=== PATIENT | male | born 1950 | race Caucasian/White ===

== ENCOUNTER 2019-03-06 13:51 | Emergency (ER) | payer BC, OTHER ==
--- NOTE | 2019-03-06 14:23 | EDPHYS ---
Physician Documentation [facility] Name: Thomas Villanueva Age: 68 yrs Sex: Male : 1950 Arrival Date: 03/06/2019 Time: 13:54 Bed 23 Private MD: ED Physician Josesito Peterson HPI: 03/06 14:17 This 68 yrs old Male presents to ER via Ambulatory with complaints of Low la1 Back Pain. 14:17 The patient presents with pain that is acute, with no known mechanism of injury. The la1 symptoms are located in the right low back. The pain does not radiate. The problem was sustained when bending over. Onset: The symptoms/episode began/occurred this morning. Modifying factors: The patient symptoms are alleviated by OTC meds, the patient symptoms are aggravated by any movement, bending, lifting. Associated signs and symptoms: Pertinent negatives: hematuria, incontinence, nausea, numbness, tingling, urinary retention, vomiting, weakness. Severity of symptoms: At their worst the symptoms were moderate, in the emergency department the symptoms are unchanged. The patient has not experienced similar symptoms in the past. Pt reports when he was getting up off the toilet he felt something in his right back area and since then has had stiffness and pain. . Historical: - Allergies: 14:05 No Known Allergies; hb - Home Meds: 14:05 clopidogrel 75 mg oral tab 1 tab once daily [Active]; finasteride 1 mg oral tab 1 tab hb once daily [Active]; Metformin Oral [Active]; levothyroxine oral [Active]; - PMHx: 14:05 Hypertension; Hypothyroidism; hb - PSHx: 14:05 None; hb - Immunization history:: Adult Immunizations up to date. - Social history:: Smoking status: Patient uses tobacco products, smokes one-half pack cigarettes per day. - Ebola Screening: : No symptoms or risks identified at this time. ROS: 14:18 Constitutional: Negative for fever, chills, and weight loss, Eyes: Negative for injury, la1 pain, redness, and discharge, ENT: Negative for injury, pain, and discharge, Neck: Negative for injury, pain, and swelling, Cardiovascular: Negative for chest pain, palpitations, and edema, Respiratory: Negative for shortness of breath, cough, wheezing, and pleuritic chest pain, Abdomen/GI: Negative for abdominal pain, nausea, vomiting, diarrhea, and constipation, : Negative for injury, bleeding, discharge, and swelling, MS/Extremity: Negative for injury and deformity, Neuro: Negative for headache, weakness, numbness, tingling, and seizure. 14:18 Back: Positive for decreased range of motion, pain at rest, pain with movement. Exam: 14:19 Constitutional: This is a well developed, well nourished patient who is awake, alert, la1 and in no acute distress. Head/Face: Normocephalic, atraumatic. Eyes: Pupils equal round and reactive to light, extra-ocular motions intact. Periorbital areas with no swelling, redness, or edema. Chest/axilla: Normal chest wall appearance and motion. Nontender with no deformity. No lesions are appreciated. Cardiovascular: Regular rate and rhythm with a normal S1 and S2. No gallops, murmurs, or rubs. Normal PMI, no JVD. No pulse deficits. 14:19 Back: pain, that is moderate, of the right low back, ROM is painful, with all movement, CVA tenderness, is absent, vertebral tenderness, is not appreciated, muscle spasm, is appreciated in the right low back, Straight leg raises: left lower extremity does not illicit pain, right lower extremity illicits pain, at 30 degrees. 14:19 Musculoskeletal/extremity: Circulation is intact in all extremities. Sensation intact. Vital Signs: 14:05 BP 140 / 62; Pulse 104; Resp 16; Temp 97.8; Pulse Ox 100% ; Weight 71.67 kg; Height 5 hb ft. 6 in. (167.64 cm); Pain 8/10; 14:45 BP 135 / 86; Pulse 90; Resp 17; Temp 98; Pulse Ox 100% on R/A; mg2 14:05 Body Mass Index 25.50 (71.67 kg, 167.64 cm) hb MDM: 14:08 Patient medically screened. la1 14:20 Data reviewed: vital signs, nurses notes, and as a result, I will discharge patient. la1 Data interpreted: Pulse oximetry: on room air is 100 %. Interpretation: normal. Counseling: I had a detailed discussion with the patient and/or guardian regarding: the historical points, exam findings, and any diagnostic results supporting the discharge/admit diagnosis, the need for outpatient follow up, a family practitioner, to return to the emergency department if symptoms worsen or persist or if there are any questions or concerns that arise at home. ED course: discussed low likelihood of bony injury without significant mechanism or risk factors, pt denies IV drug use, prolonged steroid use, history of CA, or trauma. Pain is non-radiating, no paresthesias, no saddle anesthesia, no urinary incontinence. . Administered Medications: 14:46 Drug: Robaxin 500 mg Route: PO; mg2 14:46 Follow up: Response: No adverse reaction; Medication administered at discharge. mg2 Disposition: 03/06/19 14:22 Discharged to Home. Impression: Low back pain. - Condition is Stable. - Discharge Instructions: Back Pain, Adult, Back Pain, Adult, [id number]. - Prescriptions for Robaxin 500 mg Oral Tablet - take 2 tablets by ORAL route every 6 hours As needed; 30 tablet. - Medication Reconciliation Form, Thank You Letter, Work release form form. - Follow up: Private Physician; When: 2 - 3 days; Reason: Recheck today's complaints, Re-evaluation by your physician. Follow up: Emergency Department; When: As needed; Reason: Worsening of condition. - Problem is new. - Symptoms are unchanged. Addendum: 03/07/2019 21:11 Co-signature as Attending Physician, Josesito Peterson MD I agree with the assessment and k dr plan of care. Signatures: Josesito Peterson MD MD [facility] Emiliano Houser, [employer] WELTER-C [employer] WELTER-Cla1 Yessi Webb RN RN Shankar Baez RN RN mg2 Corrections: (The following items were deleted from the chart) 03/06 14:22 14:22 03/06/2019 14:22 Discharged to Home. Impression: Low back pain. Condition is la1 Stable. Forms are Medication Reconciliation Form, Thank You Letter, Antibiotic Education, Prescription Opioid Use. Follow up: Private Physician; When: 2 - 3 days; Reason: Recheck today's complaints, Re-evaluation by your physician. Follow up: Emergency Department; When: As needed; Reason: Worsening of condition. la1 14:50 14:22 03/06/2019 14:22 Discharged to Home. Impression: Low back pain. Condition is mg2 Stable. Forms are Medication Reconciliation Form, Thank You Letter, Antibiotic Education, Prescription Opioid Use. Follow up: Private Physician; When: 2 - 3 days; Reason: Recheck today's complaints, Re-evaluation by your physician. Follow up: Emergency Department; When: As needed; Reason: Worsening of condition. Problem is new. Symptoms are unchanged. la1
--- NOTE | 2019-03-06 14:23 | ER ---
Nurse's Notes [facility] Name: Thomas Villanueva Age: 68 yrs Sex: Male : 1950 Arrival Date: 03/06/2019 Time: 13:54 Bed 23 Private MD: Diagnosis: Low back pain Presentation: 03/06 14:03 Presenting complaint: Right sided low back pain x 2 days. Denies fever/injury/urinary hb s/s. Transition of care: patient was not received from another setting of care. Onset of symptoms was March 05, 2019. Risk Assessment: Do you want to hurt yourself or someone else? Patient reports no desire to harm self or others. Initial Sepsis Screen: Does the patient meet any 2 criteria? No. Patient's initial sepsis screen is negative. Does the patient have a suspected source of infection? No. Patient's initial sepsis screen is negative. Care prior to arrival: Medication(s) given: Motrin, at 1200. 14:03 Method Of Arrival: Ambulatory hb 14:03 Acuity: NGOC 4 hb Historical: - Allergies: 14:05 No Known Allergies; hb - Home Meds: 14:05 clopidogrel 75 mg oral tab 1 tab once daily [Active]; finasteride 1 mg oral tab 1 tab hb once daily [Active]; Metformin Oral [Active]; levothyroxine oral [Active]; - PMHx: 14:05 Hypertension; Hypothyroidism; hb - PSHx: 14:05 None; hb - Immunization history:: Adult Immunizations up to date. - Social history:: Smoking status: Patient uses tobacco products, smokes one-half pack cigarettes per day. - Ebola Screening: : No symptoms or risks identified at this time. Screenin:49 Abuse screen: Denies threats or abuse. Denies injuries from another. Nutritional mg2 screening: No deficits noted. Tuberculosis screening: No symptoms or risk factors identified. Fall Risk None identified. Assessment: 14:47 General: Appears in no apparent distress. comfortable, Behavior is calm, cooperative. mg2 Pain: Complains of pain in right low back Pain does not radiate. Pain currently is 4 out of 10 on a pain scale. Quality of pain is described as aching, Pain began gradually, 2-3 days ago. Neuro: Level of Consciousness is awake, alert, obeys commands, Oriented to person, place, time, situation. Cardiovascular: Capillary refill < 3 seconds Patient's skin is warm and dry. Respiratory: Airway is patent Respiratory effort is even, unlabored, Respiratory pattern is regular, symmetrical. GI: No signs and/or symptoms were reported involving the gastrointestinal system. : No signs and/or symptoms were reported regarding the genitourinary system. EENT: No signs and/or symptoms were reported regarding the EENT system. Derm: Skin is intact, is healthy with good turgor, Skin is pink, warm \T\ dry. normal. Musculoskeletal: Circulation, motion, and sensation intact. Capillary refill < 3 seconds, Reports pain in right low back. Vital Signs: 14:05 BP 140 / 62; Pulse 104; Resp 16; Temp 97.8; Pulse Ox 100% ; Weight 71.67 kg; Height 5 hb ft. 6 in. (167.64 cm); Pain 8/10; 14:45 BP 135 / 86; Pulse 90; Resp 17; Temp 98; Pulse Ox 100% on R/A; mg2 14:05 Body Mass Index 25.50 (71.67 kg, 167.64 cm) hb ED Course: 13:54 Patient arrived in ED. as 14:04 Triage completed. hb 14:05 Arm band placed on. hb 14:08 Emiliano Houser FNP-C is [facility]. la1 14:08 Josesito Peterson MD is Attending Physician. la1 14:38 Shankar Baez, GREG is Primary Nurse. mg2 14:49 Patient has correct armband on for positive identification. mg2 14:49 No provider procedures requiring assistance completed. Patient did not have IV access mg2 during this emergency room visit. Administered Medications: 14:46 Drug: Robaxin 500 mg Route: PO; mg2 14:46 Follow up: Response: No adverse reaction; Medication administered at discharge. mg2 Outcome: 14:22 Discharge ordered by . la1 14:49 Discharged to home ambulatory. mg2 14:49 Condition: stable 14:49 Discharge instructions given to patient, Instructed on discharge instructions, follow up and referral plans. medication usage, Demonstrated understanding of instructions, follow-up care, medications, Prescriptions given X 1. 14:50 Patient left the ED. mg2 Signatures: Emily Yoder as Emiliano Houser FNP-C [employer]IST[employer]-Cla1 Yessi Webb RN RN Shankar Baez, GREG RN mg2 Corrections: (The following items were deleted from the chart) 14:50 14:50 BP 135 / 86; Pulse 90bpm; Resp 17bpm; Pulse Ox 100% RA; Temp 98F; mg2 mg2
[2019-03-06] MEDS ORDERED: METHOCARBAMOL 500 MG TAB ONE (14:43)
[2019-03-06] MEDS ORDERED: COLCHICINE 0.6 MG TAB ONE (15:23)
[2019-03-06 19:23] VITALS: O2SAT 100
[2019-03-06 19:25] VITALS: BP 135/86; TEMP 98
== END 2019-03-06 14:50 | disposition home or self-care (01) ==
LOC: ER 13:51
DX: M54.5 Low back pain (principal); I10 Essential (primary) hypertension; E03.9 Hypothyroidism, unspecified; F17.210 Nicotine dependence, cigarettes, uncomplicated
CPT/HCPCS: 99283

== ENCOUNTER 2022-03-07 18:56 | Inpatient (IN) | payer BC ==
--- OUTSIDE RECORDS SUMMARY | 2022-03-07 19:00 | XMS REPORT | Continuity of Care Document ---
:1950 Author Organization [facility] t Address [address] [place] [address] Care Team Providers Name Role Phone [facility] \\\\ [facility] Primary Care Physici an Unavailable Maame Paz APN Attending Clinician MAAME PAZ Attending Clinician Unavailable MAAME PAZ Admitting Clinician Unavailable Payers Payer Name Policy Type Policy Number Effective Date Expiration Date S ource Problems Condition Condition Condition Status Onset Resolution Last Treating Co mments Source Name Details Category Date Date Treatment Clinician Date No known No known Disease Unive rs active active ity of problems problems [facility] Allergies, Adverse Reactions, Alerts Allergy Allergy Status Severity Reaction(s) Onset Inactive Treating Comm ents Source Name Type Date Date Clinician NO KNOWN Drug Active Univers ALLERGIE Class ity of S [facility] Social History Social Habit Start Date Stop Date Quantity Comments Source Sex Assigned At Uni versity of [facility] Smoking Status Start Date Stop Date Source Unknown if ever smoked Universit y [facility] Medications Ordered Filled Start Stop Current Ordering Indication Dosage Frequency Signature Comments Components Source Medication Medication Date Date Medication? Clinician (SIG) Name Name NaCl 0.9% 2020-0 2020- No 500mL at 999 Univ ers (NS) bolus 2-24 02-24 mL/hr, 500 it y of infusion 04:30: 06:30 mL, IV [place] 500 mL 00 :00 Infusion, Medical ONCE, 1 Branch dose, 05/12/19 at 2230, STAT methylpredn 2020-0 2020- No 125mg 125 mg, U nivers isolone sod 2-24 02-24 Slow IV ity of succ 03:15: 02:18 [place], [place] (SOLU-MEDRO 00 :00 ONCE, 1 Medic al L) dose, [place] Branch injection 05/12/19 at 125 mg 2114, STAT ipratropium 2019- No 3mL 3 mL, [facility] ers -albuterol 05-13 Inhalation it y of (DUONEB) 03:15: 02:18 , ONCE [place] 0.5 mg-3 00 :00 NOW, 1 Medical mg(2.5 mg dose, [facility] h base)/3 mL 05/12/19 at nebulizer 2114, solution 3 Routine mL ipratropium 2020- No 3mL 3 mL, [facility] ers -albuterol 05-13 Inhalation it y of (DUONEB) 03:06: 03:07 , ONCE [place] 0.5 mg-3 00 :00 NOW, 1 Medical mg(2.5 mg dose, [place] h base)/3 mL 05/12/19 at nebulizer 2114, solution 3 Routine mL azithromyci Yes [id number] 250mg Take 1 Univers n 250 mg 2-23 tablet by ity of tablet 00:00: mouth [place] 00 daily. Medical Branch predniSONE 2020- No [id number] 40mg Take 2 Univers 20 mg 2-23 -29 tablets by ity of tablet 00:00: 05:59 mouth [place] 00 :00 every Medical morning Branch for 5 days. Vital Signs Vital Name Observation Time Observation Value Comments Source Systolic blood 2019-05-13 03:00:00 130 mm[Hg] [facility] pressure [facility] Diastolic blood 2019-05-13 03:00:00 66 mm[Hg] [facility] Heart rate 2019-05-13 03:00:00 115 /min [facility] Respiratory rate 2019-05-13 03:00:00 19 /min [facility] Oxygen saturation in 2019-05-13 03:00:00 93 /min [facility] Arterial blood by [facility] Pulse oximetry Branch Body temperature 2019-05-13 01:59:00 36.44 Reyna [facility] Body height 2019-05-13 01:59:[address] [facility] Body weight 2019-05-13 01:59:[address] [facility] BMI 2019-05-13 01:59:00 31.28 kg/m2 [facility] Procedures Procedure Date / Time Performing Clinician Source Performed XR CHEST 2 VW 2019-05-13 02:37:[address] [facility] ADC,CLC OR LCC ONLY - 2019-05-13 02:21:00 Maame Paz [facility] INFLUENZA A & B DIRECT Medical [facility] [place] ANTIGEN TROPONIN I 2019-05-13 02:20:[address] [facility] COMP. METABOLIC PANEL 2019-05-13 02:20:00 [facility] ([id number] N-TERMINAL PRO-BNP 2019-05-13 02:20:[address] [facility] CBC WITH DIFFERENTIAL 2019-05-13 02:19:00 [facility] Paz [facility] EKG-12 LEAD 2019-05-13 02:08:[address] [facility] Encounters Start End Encounter Admission Attending Care Care Encounter Source Date/Time Date/Time Type Type Clinicians Facility Department ID 2019-05-12 2019-05-13 [id number] Univers 20:03:05 00:37:00 Maame Schrader [id number] [facility] [id number] [facility] [id number] [facility] 084 Branch 2019-05-12 2019-05-13 Emergency X BRANDI [facility] ERT [id number] Univers 20:03:05 00:37:00 MAAME [facility] Results Test Description Test Time Test Comments Results Result Comments Source ADC,CLC OR LCC ONLY - INFLUENZA A & B DIRECT ANTIGEN 2019-04 03:12:00 Test Item Value Reference Range Interpretation Comme nts Influenza A (test code = 64725-4) Negative Negative Influenza B (test code = 20811-5) Negative Negative Lab Interpretation (test code = 98446-5) Normal [facility] 2 [id number] 03:09:17 No acute cardiopulmonary process. Preliminary Report Dictated by Resident: Bora Elizabeth MD., have reviewed this study and agree with theabove report.PROCEDURE: XR CHEST 2 VW CLINICAL INDICATION: sob, cough, hx of copd COMPARISON: CT chest September 2004 TECHNIQUE: Frontal and lateralviews of the chest were obtained. FINDINGS: No focal consolidation, pleural effusion, or pneumothorax. The cardiac silhouette is normal in size. A vascular stent is noted. No acute osseous abnormality.Bilateral AC joint osteoporosis. [facility], Radiant Results Inft User - 05/12/2019 9:10 PM CSTPROCEDURE: XR CHEST 2 VWCLINICAL INDICATION: sob, cough, hx of copd COMPARISON: CT chest September 2004TECHNIQUE: Frontal and lateral views of the chest were obtained.FINDINGS:No focal consolidation, pleural effusion, or pneumothorax. The cardiac silhouette is normal in size. A vascular stent is noted.No acute osseousabnormality. Bilateral AC joint osteoporosis.IMPRESSIONNo acute cardiopulmonary process.Preliminary Report Dictated by Resident: Bora Aguirre MD., have reviewed this study and agreewith theabove report.[facility] [id number] 03:02:00 Test Item Value Reference Range Interpretation Comments TROPONIN I (test 0.022 ng/mL See_Comment [Automated code = 8988234565) message] The system which generated this result transmitted reference range : <=0.034. The reference range was not used to interpret this result as normal/abnormal . CECILIO (test code = Equal or Less than CECILIO) 0.034 ng/ml---Normal ?Note: Cardiac troponin begins to rise 3-4 hours after the onset of ischemia. Repeat in 4-6 hours if the sample was drawn within 3-4 hours of the onset of the symptom and found normal. Between 0.035 and 0.120 ng/mL--- Borderline. Questionable myocardial injury or necrosis ? ?Note: Serial measurement may be necessary to confirm or exclude the diagnosis of myocardial injury or necrosis; Clinical correlation (symptoms, EKGs, imaging studies, and others) required; Repeat in 4-6 hours if clinically indicated. ? Equal or Higher than 0.121 ng/mL---Abnormal. Myocardial Injury or Necrosis Likely ? Biotin has been reported to cause a negative bias, interpret results relative to patient's use of biotin. ? Lab Interpretation Normal (test code = 86339-9) [facility] PHO-[id number] 02:58:00 Test Item Value Reference Range Interpretation Comments NT-proBNP (test code 241 pg/mL See_Comment H [Autom ated = 5724330739) message] The system which generated this result transmitted reference range : <=125. The reference range was not used to interpret this result as normal/abnormal . CECILIO (test code = CECILIO) Biotin has been reported to cause a negative bias, interpret results relative to patient's use of biotin. Lab Interpretation Abnormal (test code = 90780-9) [facility]OLIC PANEL (21159)2019-05-13 02:50:00 Test Item Value Reference Range Interpretation Comments NA (test code = 141 mmol/L 135-145 6201277186) K (test code = 5.1 mmol/L 3.5-5 H 3881550753) CL (test code = 106 mmol/L 98-108 8041748991) CO2 TOTAL (test code = 25 mmol/L 23-31 0848534883) AGAP (test code = 2-16 1590335769) BUN (test code = 26 mg/dL 7-23 H 9683083565) GLUCOSE (test code = 156 mg/dL 70-110 H 4371831258) CREATININE (test code = 1.77 mg/dL 0.6-1.25 H 1088766060) TOTAL BILI (test code = 0.4 mg/dL 0.1-1.0 8060236214) CALCIUM (test code = 9.9 mg/dL 8.6-10.6 1871688772) T PROTEIN (test code = 8.4 g/dL 6.3-8.2 H 8555292570) ALBUMIN (test code = 4.8 g/dL 3.5-5 6171970575) ALK PHOS (test code = 71 U/L 34-122 8066543378) ALTv (test code = 20 U/L 5-50 1742-6) AST(SGOT) (test code = 38 U/L 13-40 5341185660) eGFR Calculation mL/min/1.73m2 (Non-) (test code = 2719355533) eGFR Calculation mL/min/1.73m2 () (test code = 2479984006) CECILIO (test code = CECILIO) Association of Glomerular Filtration Rate (GFR) and Staging of Kidney Disease* + --+ --+ ------+| GFR (mL/min/1.73 m2) ?| With Kidney Damage ?| ?Without Kidney Damage+ --------+ --------+ +| ?>90 ?| ?Stage one ?| ? Normal ?+ ---+ ---+ -------+| ?60-89 ?| ?Stage two ?| ? Decreased GFR ? + --+ --+ ------+| ?30-59 ?| ?Stage three ?| ? Stage three ? + --+ --+ ------+| ?15-29 ?| ?Stage four ? | ? Stage four ?+ ---+ ---+ -------+| ?<15 (or dialysis) ? ?| ?Stage five ? | ? Stage five ?+ ---+ ---+ -------+ *Each stage assumes the associated GFR level has been in effect for at least three months. ?Stages 1 to 5, with or without kidney disease, indicate chronic kidney disease. Notes: Determination of stages one and two (with eGFR >59mL/min/1.73 m2) requires estimation of kidney damage for at least three months as defined by structural or functional abnormalities of the kidney, manifested by either:Pathological abnormalities or Markers of kidney damage (including abnormalities in the composition of the blood or urine or abnormalities in imaging tests). Lab Interpretation Abnormal (test code = 30824-1) [facility] WITH [id number] 02:34:00 Test Item Value Reference Range Interpretation Comments WBC (test code = See_Comment [Automated 4993-2) message] The sy stem which generated this result transmitted reference range : 4.20 - 10.70 10*3/?L. The reference range was not used to interpret this result as normal/abnormal . RBC (test code = See_Comment L [Automated 589-8) message] The sy stem which generated this result transmitted reference range : 4.26 - 5.52 10*6/?L. The reference range was not used to interpret this result as normal/abnormal . HGB (test code = 12.7 g/dL 12.2-16.4 718-7) HCT (test code = 38.4 % 38.4-49.3 4544-3) MCV (test code = 96.5 fL 81.7-95.6 H 787-2) MCH (test code = 31.9 pg 26.1-32.7 785-6) MCHC (test code = 33.1 g/dL 31.2-35 786-4) RDW-SD (test code = 48.7 fL 38.5-51.6 38035-6) RDW-CV (test code = 13.7 % 12.1-15.4 788-0) PLT (test code = See_Comment [Automated 777-3) message] The sy stem which generated this result transmitted reference range : 150 - 328 10*3/ ?L. The reference r elkin was not used to interpret this result as normal/abnormal . MPV (test code = 9.1 fL 9.8-13 L 71063-3) NRBC/100 WBC (test See_Comment [Automat ed code = 1934519892) message] The system which generated this result transmitted reference range : 0.0 - 10.0 /100 WBCs. The refer ence range was not u sed to interpret th is result as normal/abnormal . NRBC x10^3 (test code <0.01 See_Comment [Auto mated = 0557263543) message] The s ystem which generated this result transmitted reference range : 10*3/?L. The reference range was not used to interpret this result as normal/abnormal . GRAN MAT (NEUT) % 67.8 % (test code = 770-8) IMM GRAN % (test code 0.50 % = 5690291517) LYMPH % (test code = 20.9 % 736-9) MONO % (test code = 8.2 % 5905-5) EOS % (test code = 2.2 % 713-8) BASO % (test code = 0.4 % 706-2) GRAN MAT x10^3(ANC) 6.83 10*3/uL 1.99-6.95 (test code = 2167769158) IMM GRAN x10^3 (test 0.05 10*3/uL 0-0.06 code = 8444573739) LYMPH x10^3 (test code 2.11 10*3/uL 1.09-3.23 = 731-0) MONO x10^3 (test code 0.83 10*3/uL 0.36-1.02 = 742-7) EOS x10^3 (test code = 0.22 10*3/uL 0.06-0.53 711-2) BASO x10^3 (test code 0.04 10*3/uL 0.01-0.09 = 704-7) Lab Interpretation Abnormal (test code = 69456-3) [facility]"
[2022-03-07] MEDS ORDERED: ACETAMINOPHEN 500 MG TAB PO PRN (19:19)
[2022-03-07] MEDS ORDERED: ALBUTEROL 2.5 MG/3 ML NEB SOL NEB PRN (19:19)
[2022-03-07] MEDS ORDERED: ONDANSETRON 4 MG/2 ML VIAL IV PRN (19:19)
--- NOTE | 2022-03-07 19:23 | P.HP ---
Certification for Inpatient Patient admitted to: Inpatient With expected LOS: >2 Midnights Patient will require the following post-hospital care: None Practitioner: I am a practitioner with admitting privileges, knowledge of patient current condition, hospital course, and medical plan of care. Services: Services provided to patient in accordance with Admission requirements found in Title 42 Section 412.3 of the Code of Federal Regulations <Kaleigh Perez - Last Filed: 03/07/22 22:01> Patient History Date of Service: 03/07/22 Reason for admission: CHF Exacerbation History of Present Illness: Patient is a 71-year-old male with past medical history of hypertension, coronary artery disease, type 2 diabetes, COPD, and hypothyroidism who was admitted to the telemetry unit after transfer from [facility]. Patient states that he has noticed his legs have become increasingly swollen over the past couple of weeks. He denies any history of congestive heart failure or daily use of diuretics. Outside facility reports that he had 4+ pitting edema on his lower extremities bilaterally and he was saturating 89% on room air. Despite 40 mg IV Lasix, patient was still borderline hypoxic on room air and short of breath and therefore transferred him to this facility for further management. His labs were significant for potassium of 3.1, creatinine 1.68, BNP 6131, troponin HS 243. Chest x-ray showed "pulmonary vascular congestion and diffuse interstitial prominence. There is moderate infiltrate within the right lower lobe with a small right pleural effusion. The lungs are hyperexpanded. There is a questionable nodule at the left lower lung." During my assessment, patient has no complaints. He denies shortness of breath, is not experiencing any labored breathing, not requiring supplemental O2. 2+ pitting edema is noted to bilateral lower extremities. Will obtain repeat labs, order echocardiogram, and consult cardiology for further management. Home medications list reviewed: Yes - Past Medical/Surgical History Diabetic: Yes -: Type 2 Diabetes, Non-Insulin Dependent -: Congestive Heart Failure -: Hypertension -: Hypothyroidism -: CAD -: COPD -: Cardiac Cath with 2 stents Psychosocial/ Personal History: Patient lives at home. He is retired. - Family History Father -: Diabetes - Social History Smoking Status: Current every day smoker Alcohol use: No CD- Drugs: No Caffeine use: Yes Place of Residence: Home <Ayla Perezia - Last Filed: 03/07/22 22:01> Date of Service: 03/08/22 - Family History Father -: Diabetes Mother -: Diabetes <BarbiKingsley - Last Filed: 03/08/22 15:40> Allergies No Known Drug Allergies Allergy (Verified 03/07/22 20:50) Unknown Review of Systems Respiratory: Shortness of Breath Cardiovascular: Edema <Kaleigh Perez - Last Filed: 03/07/22 22:01> Physical Examination - Vital Signs Temperature: 97.6 F Blood Pressure: 151/100 Pulse: 96 Respirations: 20 Pulse Ox (%): 94 (room air) - Physical Exam General: Alert, In no apparent distress HEENT: Atraumatic, PERRLA, EOMI, Sclerae nonicteric Neck: Supple, Without JVD or thyroid abnormality Respiratory: Clear to auscultation bilaterally, Normal air movement Cardiovascular: Regular rate/rhythm, Normal S1 S2, Edema (2+ pitting edema bilateral lower extremities) Gastrointestinal: Normal bowel sounds, No tenderness Musculoskeletal: No tenderness Integumentary: No rashes Neurological: Normal speech, Normal strength at 5/5 x4 extr, Normal tone, Normal affect <Kaleigh Perez - Last Filed: 03/07/22 22:01> - Studies Laboratory Data (last 24 hrs) 03/08/22 04:50: WBC 9.80, Hgb 13.6, Hct 43.7, Plt Count 183 03/08/22 04:40: Sodium 141, Potassium 3.6, BUN 16, Creatinine 1.30, Glucose 88, Magnesium 1.8, Triglycerides 80, Cholesterol 101, HDL Cholesterol 39 L, Cholesterol/HDL Ratio 2.59 03/07/22 19:51: PT 14.7 H, INR 1.34, APTT 34.8 03/07/22 19:51: Sodium 142, Potassium 3.4 L, BUN 17, Creatinine 1.57 H, Glucose 91, Magnesium 2.0, Total Bilirubin 1.2 H, AST 33, ALT 20, Alkaline Phosphatase 154 H 03/07/22 19:51: WBC 9.50, Hgb 14.0, Hct 45.2, Plt Count 195 <Barbi,Kingsley - Last Filed: 03/08/22 15:40> Assessment and Plan - Problems (Diagnosis) (1) Acute CHF Current Visit: Yes Status: Acute Qualifiers: Heart failure type: unspecified Qualified Code(s): I50.9 - Heart failure, unspecified (2) Hypertension Current Visit: Yes Status: Chronic Qualifiers: Hypertension type: primary hypertension Qualified Code(s): I10 - Essential (primary) hypertension (3) Coronary artery disease Current Visit: Yes Status: Acute Qualifiers: Coronary Disease-Associated Artery/Lesion type: [place] artery [place] vs. transplanted heart: [place] heart Associated angina: without angina Qualified Code(s): I25.10 - Atherosclerotic heart disease of [place] coronary artery with out angina pectoris (4) Type 2 diabetes mellitus Current Visit: Yes Status: Chronic Qualifiers: Diabetes mellitus bed bug exterminator insulin use: without senior living use Diabetes mellitus complication status: without complication Qualified Code(s): E11.9 - Type 2 diabetes mellitus without complications (5) Hypothyroidism Current Visit: Yes Status: Chronic Qualifiers: Hypothyroidism type: unspecified Qualified Code(s): E03.9 - Hypothyroidism, unspecified - Plan Patient is admitted for new onset of CHF/CHF exacerbation. Echocardiogram ordered. Cardiology consulted. Troponin HS from [place] was 243. Likely demand ischemia. Received 325 mg aspirin. Repeat labs pending. Trend serial cardiac enzymes. Received 40 mg IV lasix at [place]. Will continue 40 mg IV BID. Patient states he no longer takes medication for T2D. Glucose monitoring and control with SS. A1c, lipid panel, and TSH ordered. Tobacco cessation advised. Nicoderm patch offered. Monitor and replete electrolytes per protocol. Reconcile and continue home medications. Lovenox for VTE prophylaxis. Full code Discharge Plan: Home Plan to discharge in: 48 Hours - Advance Directives Does patient have a Living Will: No Does patient have a Durable POA for Healthcare: No - Code Status/Comfort Care Code Status Assessed: Yes Code Status: Full Code Physician Review: Patient Assessed, Agree with Above Assessment and Plan Critical Care: No Time Spent Managing Pts Care (In Minutes): 50 <Kaleigh Perez - Last Filed: 03/07/22 22:01> Physician Review: Patient Assessed, Agree with Above Assessment and Plan <Kingsley Landon - Last Filed: 03/08/22 15:40>
[2022-03-07] MEDS ORDERED: D50W 25 GM/50 ML SYRINGE IV PRN (19:24)
[2022-03-07] MEDS ORDERED: GLUCAGON 1 MG/VIAL IM PRN (19:24)
[2022-03-07 20:18] LABS: Hematocrit 45.2 % (39.6-49.0); Lymphocytes % 10.8 % (15.3-44.8); MCV 88.7 fL (80-100); MPV 8.4 fL (7.6-11.3); RBC Red Blood Cell Count 5.09 M/uL (4.33-5.43)
[2022-03-07 20:22] LABS: Protime INR 1.34
[2022-03-07 20:44] LABS: Albumin 2.5 g/dL (3.4-5.0); Bilirubin Total 1.2 mg/dL (0.2-1.0); Potassium 3.4 mmol/L (3.5-5.1); Protein, Total 6.8 g/dL (6.4-8.2)
[2022-03-07] MEDS ORDERED: POTASSIUM CL SA 10 MEQ TAB PO ONE (21:00)
[2022-03-07] MEDS: INSULIN -REGULAR HUMAN 50 UNIT/0.5 ML ML SQ SCH (21:00)
[2022-03-07] MEDS ORDERED: D10W 125 ML IV PRN (21:03)
[2022-03-07] MEDS: ATORVASTATIN 40 MG TAB PO SCH (21:10)
[2022-03-07 22:00] VITALS: BMI 28.7
[2022-03-07] MEDS: ENOXAPARIN 80 MG/0.8 ML SQ SCH (22:28)
[2022-03-08 02:24] LABS: Specific Gravity 1.007 (1.005-1.030); Urine Bacteria <20 /HPF (<20); Urine Bilirubin NEGATIVE (Negative); Urine Blood 2+ (Negative); Urine Clarity Clear (Clear); Urine Color Colorless (Yellow); Urine Glucose 3+ (Negative); Urine Mucus Slight /HPF (None Seen); Urine Protein 1+ (Negative); Urine RBC 21-50 /HPF (None Seen); Urine Urobilinogen Normal (Normal); Urine pH 6.5 (5.0-7.0)
[2022-03-08 05:13] LABS: Hematocrit 43.7 % (39.6-49.0); MCV 88.3 fL (80-100); MPV 8.5 fL (7.6-11.3); RBC Red Blood Cell Count 4.95 M/uL (4.33-5.43)
[2022-03-08 05:36] LABS: Magnesium 1.8 mg/dL (1.6-2.4); Potassium 3.6 mmol/L (3.5-5.1); Thyroid Stimulating Hormone 2.91 uIU/mL (0.358-3.740)
[2022-03-08] MEDS: ENOXAPARIN 80 MG/0.8 ML SQ SCH ×2 (07:28→21:05)
[2022-03-08] MEDS: ASPIRIN EC 81 MG TAB PO SCH (07:29)
[2022-03-08] MEDS: FUROSEMIDE 40 MG/4 ML VIAL IV SCH ×2 (07:29→16:01)
[2022-03-08] MEDS: INSULIN -REGULAR HUMAN 50 UNIT/0.5 ML ML SQ SCH ×4 (07:29→21:00)
[2022-03-08] MEDS ORDERED: MAGNESIUM SULFATE 1 gm IVPB 1 GM/100 ML BAG IV ONE (09:00)
[2022-03-08] MEDS ORDERED: ENOXAPARIN 40 MG/0.4 ML SQ SCH (09:00)
[2022-03-08] MEDS ORDERED: POTASSIUM CL SA 10 MEQ TAB PO ONE (09:00)
[2022-03-08] MEDS ORDERED: ALBUTEROL 2.5 MG/3 ML NEB SOL NEB PRN (15:00)
--- NOTE | 2022-03-08 15:42 | P.PN ---
Subjective Date of Service: 03/08/22 Chief Complaint: CHF Exacerbation No acute events overnight. He reports that his breathing is improved compared to yesterday. He reports persistent orthopnea and lower extremity edema. He denies chest pain or palpitations. Review of Systems 10-point ROS is otherwise unremarkable Respiratory: Shortness of Breath Cardiovascular: Orthopnea Physical Examination - Vital Signs Temperature: 97.8 F Blood Pressure: 119/72 Pulse: 107 Respirations: 16 Pulse Ox (%): 91 - Physical Exam General: Alert, In no apparent distress, Oriented x3 HEENT: Atraumatic, Mucous membr. moist/pink, EOMI, Sclerae nonicteric Neck: JVD distended (minimally) Respiratory: Crackles/rales (bibasilar) Cardiovascular: Normal pulses, Regular rate/rhythm, Normal S1 S2, No gallops, No rubs, No murmurs, Edema (2-3+ BLE) Gastrointestinal: Normal bowel sounds, Soft and benign, Non-distended, No tenderness, No rebound, No guarding Musculoskeletal: No clubbing Integumentary: No rashes Neurological: Normal speech, Cranial nerves 3-12 intact, Normal affect - Studies Laboratory Data (last 24 hrs) 03/08/22 04:50: WBC 9.80, Hgb 13.6, Hct 43.7, Plt Count 183 03/08/22 04:40: Sodium 141, Potassium 3.6, BUN 16, Creatinine 1.30, Glucose 88, Magnesium 1.8, Triglycerides 80, Cholesterol 101, HDL Cholesterol 39 L, Cholesterol/HDL Ratio 2.59 03/07/22 19:51: PT 14.7 H, INR 1.34, APTT 34.8 03/07/22 19:51: Sodium 142, Potassium 3.4 L, BUN 17, Creatinine 1.57 H, Glucose 91, Magnesium 2.0, Total Bilirubin 1.2 H, AST 33, ALT 20, Alkaline Phosphatase 154 H 03/07/22 19:51: WBC 9.50, Hgb 14.0, Hct 45.2, Plt Count 195 Assessment And Plan - Plan # Acute Decompensated Congestive Heart Failure with Unknown Ejection Fraction - Consult Cardiology - recommendations appreciated - Ordered transthoracic echocardiogram - Diuresis with IV furosemide for today - NT-Pro BNP = 5150 - Daily weights - Strict I/O - Cardiac diet, 1.5 L fluid restriction, 2 g Na restriction # Suspect Type II Non-ST Segment Elevation Myocardial Infarction (Demand Ischemia) due to above # Coronary Artery Disease s/p PCI # Hypertension # Dyslipidemia - Evaluation thus far: - EKG: no reported STEMI criteria, trend - Serial troponin: 224.2 -> 211.9 - Ordered transthoracic echocardiogram - D-dimer ordered - Management plan: - Consult Cardiology - recommendations appreciated - S/P aspirin 325 mg PO x 1 at [facility] - Continue aspirin, atorvastatin, enoxaparin - If cardiac ischemia confirmed, plan to start beta-tala, ELMO- inhibitor/ARB as tolerated # Type II Diabetes Mellitus - Hgb A1c = 6.5 % - Correction scale insulin # Tobacco Use Disorder - Tobacco cessation counseling provided - Nicotine patch offered # Hypothyroidism - Continue home levothyroxine # Chronic Obstructive Pulmonary Disease - Does not appear to be in acute exacerbation - Resume home medications once verified Kingsley Landon M.D.
--- NOTE | 2022-03-08 17:33 | RAD REPORT ---
EXAM DESCRIPTION: US - CP - 03/08/2022 5:21 pm CLINICAL HISTORY: follow up carotid stent Neck pain and swelling COMPARISON: CAROTID ARTERY BILATERAL dated 12/29/2014 TECHNIQUE: Real-time sonographic evaluation of both carotid systems was performed. Doppler interroga tion was performed with waveform tracing bilaterally. FINDINGS: Moderately severe atheromatous plaquing is present involving the right carotid bulb. This results in 50-70% stenosis estimated based on NASCET criteria. The left internal carotid artery demonstrates significant diminishment flow proximally. The mid and d istal left internal carotid artery demonstrates elevated flow velocity. Patient reports the presence of a left internal carotid artery stent, although a clear stent is not seen and may be nearly occlude d given the very diminished flow. Antegrade flow is seen in both vertebral arteries. IMPRESSION: Patient reports a history of left internal carotid stent. The stent is difficult to visu caroline sonographically and may be near occluded or occluded. Very minimal flow is seen in the left int ernal carotid artery proximal lumen. 50-70% stenosis suspected proximal right internal carotid artery based on NASCET criteria and cause p redominately by heavy plaquing. CTA or MRA of the neck vessels would be recommended for further evaluation.
--- NOTE | 2022-03-08 17:57 | RAD REPORT ---
EXAM DESCRIPTION: CT - Chest For Pe Angio - 03/08/2022 5:44 pm CLINICAL HISTORY: Chest pain. elevated d-dimer COMPARISON: Thorax Wo Con dated 07/22/2020 TECHNIQUE: CT angiogram of the pulmonary arteries was performed with MIP. All CT scans are performed using dose optimization technique as appropriate and may include automated exposure control or mA/KV adjustment according to patient size. FINDINGS: No evidence of pulmonary thromboembolism. No acute aortic finding demonstrated. The lungs are mildly emphysematous with linear atelectasis versus mild infiltrate in the right lung b ase. Small to moderate right pleural effusion. No concerning bony finding. IMPRESSION: No evidence of pulmonary thromboembolism. Linear atelectasis or early infiltrate in the right base. Small to moderate right pleural effusion.
[2022-03-08] MEDS: ATORVASTATIN 40 MG TAB PO SCH (21:05)
--- NOTE | 2022-03-08 21:21 | P.CNS ---
Date of Consult: 03/08/22 Reason for Consult: CKD III Requesting Physician: Kingsley Landon Chief Complaint: CHF Exacerbation History of Present Illness: Patient is a 71-year-old male with past medical history of hypertension, coronary artery disease, type 2 diabetes, COPD, and hypothyroidism who was admitted to the telemetry unit after transfer from [facility]. Patient states that he has noticed his legs have become increasingly swollen over the past couple of weeks. He denies any history of congestive heart failure or daily use of diuretics. Outside facility reports that he had 4+ pitting edema on his lower extremities bilaterally and he was saturating 89% on room air. Despite 40 mg IV Lasix, patient was still borderline hypoxic on room air and short of breath and therefore transferred him to this facility for further management. His labs were significant for potassium of 3.1, creatinine 1.68, BNP 6131, troponin HS 243. Chest x-ray showed "pulmonary vascular congestion and diffuse interstitial prominence. There is moderate infiltrate within the right lower lobe with a small right pleural effusion. The lungs are hyperexpanded. There is a questionable nodule at the left lower lung." During my assessment, patient has no complaints. He denies shortness of breath, is not experiencing any labored breathing, not requiring supplemental O2. 2+ pitting edema is noted to bilateral lower extremities. Will obtain repeat labs, order echocardiogram, and consult cardiology for further management. Allergies No Known Drug Allergies Allergy (Verified 03/07/22 20:50) Unknown Home medications list reviewed: Yes Home Medications: Budesonide/Glycopyr/Formoterol [Breztri Aerosphere Inhaler] 2 puff IH BID 03/08/22 Clopidogrel Bisulfate [Plavix] 1 tab PO DAILY 03/08/22 Empagliflozin [Jardiance] 1 tab PO DAILY 03/08/22 Finasteride 1 tab PO DAILY 03/08/22 Gabapentin 1 cap PO BEDTIME 03/08/22 Levothyroxine [Synthroid*] 1 tab PO DAILY 03/08/22 Montelukast Sodium [Singulair] 1 tab PO DAILY 03/08/22 Simvastatin 1 tab PO DAILY 03/08/22 - Past Medical/Surgical History Diabetic: Yes -: Type 2 Diabetes, Non-Insulin Dependent -: Congestive Heart Failure -: Hypertension -: Hypothyroidism -: CAD -: COPD -: CKD III (Dr. Hdz) -: Cardiac Cath with 2 stents -: Bilateral Cataract Psychosocial/ Personal History: Patient lives at home. He is retired. - Family History Father Medical History: Diabetes Mother Medical History: Diabetes - Social History Smoking Status: Current every day smoker Alcohol use: No CD- Drugs: No Caffeine use: Yes Place of Residence: Home Review of Systems 10-point ROS is otherwise unremarkable General: Weakness, Malaise Respiratory: SOB with Excertion Cardiovascular: Edema Physical Examination Temp Pulse Resp BP Pulse Ox 96.9 F 101 H 18 134/83 90 L 03/08/22 19:47 03/08/22 19:47 03/08/22 19:47 03/08/22 19:47 03/08/22 19:47 General: Oriented x3, Cooperative HEENT: Atraumatic Neck: Supple Respiratory: Diminished Cardiovascular: Regular rate/rhythm, Edema Gastrointestinal: Soft and benign, Non-distended Musculoskeletal: No clubbing, No contractures Integumentary: No rashes, No cyanosis Neurological: Normal speech Laboratory Data (last 24 hrs) 03/08/22 04:50: WBC 9.80, Hgb 13.6, Hct 43.7, Plt Count 183 03/08/22 04:40: Sodium 141, Potassium 3.6, BUN 16, Creatinine 1.30, Glucose 88, Magnesium 1.8, Triglycerides 80, Cholesterol 101, HDL Cholesterol 39 L, Cholesterol/HDL Ratio 2.59 Imagings Data: [facility] EXAM DESCRIPTION: - - 03/08/2022 5:21 pm CLINICAL HISTORY: follow up carotid stent Neck pain and swelling COMPARISON: CAROTID ARTERY BILATERAL dated 12/29/2014 TECHNIQUE: Real-time sonographic evaluation of both carotid systems was performed. Doppler interrogation was performed with waveform tracing bilaterally. FINDINGS: Moderately severe atheromatous plaquing is present involving the right carotid bulb. This results in 50-70% stenosis estimated based on NASCET criteria. The left internal carotid artery demonstrates significant diminishment flow proximally. The mid and distal left internal carotid artery demonstrates elevated flow velocity. Patient reports the presence of a left internal carotid artery stent, although a clear stent is not seen and may be nearly occluded given the very diminished flow. Antegrade flow is seen in both vertebral arteries. IMPRESSION: Patient reports a history of left internal carotid stent. The stent is difficult to visualize sonographically and may be near occluded or occluded. Very minimal flow is seen in the left internal carotid artery proximal lumen. 50-70% stenosis suspected proximal right internal carotid artery based on NASCET criteria and cause predominately by heavy plaquing. CTA or MRA of the neck vessels would be recommended for further evaluation. [employer] [facility] EXAM DESCRIPTION: CT - Chest For Pe Angio - 03/08/2022 5:44 pm CLINICAL HISTORY: Chest pain. elevated d-dimer COMPARISON: Thorax Wo Con dated 07/22/2020 TECHNIQUE: CT angiogram of the pulmonary arteries was performed with MIP. All CT scans are performed using dose optimization technique as appropriate and may include automated exposure control or mA/KV adjustment according to patient size. FINDINGS: No evidence of pulmonary thromboembolism. No acute aortic finding demonstrated. The lungs are mildly emphysematous with linear atelectasis versus mild infiltrate in the right lung base. Small to moderate right pleural effusion. No concerning bony finding. IMPRESSION: No evidence of pulmonary thromboembolism. Linear atelectasis or early infiltrate in the right base. Small to moderate right pleural effusion. Conclusions/Impression: CKD III with proteinuria -No NSAIDs Hypokalemia -Replete potassium -Give spironolactone HTN with CKD/ CHF -Monitor BP Diastolic CHF, A/C -Continue Lasix BID DM II with CKD -RISS Hypoalbuminemia -Consider protein supplementation Case reviewed with Dr. Landon Thank you kindly for the consultation
[2022-03-08] MEDS ORDERED: SPIRONOLACTONE 25 MG TABLET PO ONE (22:00)
[2022-03-09 04:37] LABS: Magnesium 1.8 mg/dL (1.6-2.4); Potassium 3.1 mmol/L (3.5-5.1)
--- NOTE | 2022-03-09 07:05 | ECHO ---
HEIGHT: 5 ft 5 in WEIGHT: 166 lb 3 oz DATE OF STUDY: 03/08/[address]: Kaleigh Perez 2-DIMENSIONAL: YES M.MODE: YES DOPPLER: YES COLOR FLOW: YES TDS: PORTABLE: YES DEFINITY: BUBBLE STUDY: DIAGNOSIS: CONGESTIVE HEART FAILURE CARDIAC HISTORY: CATHERIZATION: NO SURGERY: NO PROSTHETIC VALVE: NO PACEMAKER: NO MEASUREMENTS (cm) DIASTOLIC (NORMALS) SYSTOLIC (NORMALS) IVSd 1.1 (0.6-1.2) LA Diam 4.5 (1.9-4.0) LVEF 50% LVIDd 4.1 (3.5-5.7) LVIDs 2.8 (2.0-3.5) %FS 33% LVPWd 1.2 (0.6-1.2) Ao Diam 2.4 (2.0-3.7) 2 DIMENSIONAL ASSESSMENT: RIGHT ATRIUM: NORMAL LEFT ATRIUM: ENLARGED RIGHT VENTRICLE: NORMAL LEFT VENTRICLE: NORMAL TRICUSPID VALVE: MODERATE TRICUSPID REGURGITAITON MITRAL VALVE: MODERATE MITRAL REGURGITATION PULMONIC VALVE: NORMAL AORTIC VALVE: NORMAL PERICARDIAL EFFUSION: NONE AORTIC ROOT: NORMAL LEFT VENTRICULAR WALL MOTION: MILD GLOBAL HYPOKINESIS DOPPLER/COLOR FLOW: SEE BELOW COMMENTS: 1. LOW NORMAL EJECTION FRACTION OF 50% 2. MILD GLOBAL HYPOKINESIS 3. MODERATE DIASTOLIC DYSFUNCTION 4. MODERATE MITRAL REGURGITATION 5. MODERATE PULMONARY HYPERTENSION WITH RIGHT VENTRICULAR SYSTOLIC PRESSURE OF 55-60 mmHg 6. MODERATE TRICUSPID REGURGITATION 7. LEFT ATRIAL ENLARGEMENT 8. MILD MITRAL STENOSIS TECHNOLOGIST: PAMELA SUTHERLAND
[2022-03-09] MEDS: ASPIRIN EC 81 MG TAB PO SCH (07:25)
[2022-03-09] MEDS: FUROSEMIDE 40 MG/4 ML VIAL IV SCH ×2 (07:26→16:02)
[2022-03-09] MEDS: SPIRONOLACTONE 25 MG TABLET PO SCH (07:26)
[2022-03-09] MEDS: INSULIN -REGULAR HUMAN 50 UNIT/0.5 ML ML SQ SCH ×4 (07:26→20:37)
[2022-03-09] MEDS: ENOXAPARIN 80 MG/0.8 ML SQ SCH ×2 (07:26→20:34)
[2022-03-09] MEDS ORDERED: INFLUENZA VACCINE (for 6+ mo) 0.5 ML DOSE IMVAC ONE (08:00)
[2022-03-09] MEDS ORDERED: PNEUMOCOCCAL VACCINE 0.5 ML IMVAC ONE (08:00)
[2022-03-09] MEDS ORDERED: POTASSIUM CL SA 10 MEQ TAB PO ONE ×2 (09:00→16:00)
[2022-03-09] MEDS ORDERED: MAGNESIUM SULFATE 1 gm IVPB 1 GM/100 ML BAG IV ONE (09:00)
--- NOTE | 2022-03-09 10:56 | P.PN ---
Nephrology note: (S) Pt reports dyspnea improved, peripheral edema still present but improving. Recorded weight lower today (O) Vitals reviewed in the EMR General: NAD, non tachypnec HEENT: Atraumatic, sclera anicteric, not on O2 Neck: Supple Respiratory: b/l air entry, diminished at bases Cardiovascular: Regular rate/rhythm mostly, 2+ pitting edema below knee b/l Gastrointestinal: Soft, ND, NT Musculoskeletal: No clubbing, No contractures Integumentary: No rashes, No cyanosis Neurological: Normal speech, awake, alert, responsive, non focal Laboratory Data (last 24 hrs) Reviewed in the EMR Conclusions/Impression: Abnormal results of kidney function studies. CKD II/IIIa Monitor renal function closely with diuresis, adjusment in meds. Low EROS risk. Hypokalemia -Replete potassium, place on scheduled PO KCl while on higher dose loop diuretics and until MAYDA inhibitor initiated NSTEMI/troponin leak. Cardiomyopathy unspecified. Acute systolic + diastolic CHF, pulm HTN 2nd to left sided heart disease -Cont diuresis with IV lasix, spironolactone added. F/u Cardiology reccs. -Will defer to them to see if pt would benefit from addition of Entresto. Jose Sosa MD, IRA
[2022-03-09] MEDS: POTASSIUM CL SA 10 MEQ TAB PO SCH (12:42)
--- NOTE | 2022-03-09 18:57 | P.PN ---
Subjective Date of Service: 03/09/22 Chief Complaint: CHF Exacerbation No acute events overnight. He reports that his breathing is gradually improving. He reports persistent orthopnea and lower extremity edema. I explained to him that we are concerned they he may have congestive heart failure. He stated that he does not believe he does, but will continue with the current treatment regimen, because he feels that it is helping him. Review of Systems 10-point ROS is otherwise unremarkable Respiratory: Cough, Shortness of Breath Cardiovascular: Orthopnea, Edema Physical Examination - Vital Signs Temperature: 98.1 F Blood Pressure: 147/80 Pulse: 115 Respirations: 18 Pulse Ox (%): 95 - Studies Laboratory Data (last 24 hrs) 03/09/22 14:10: Potassium 3.7 D 03/09/22 03:32: Sodium 139, Potassium 3.1 L D, BUN 20 H, Creatinine 1.39 H, Glucose 87, Magnesium 1.8 Assessment And Plan - Plan - Physical Exam General: Alert, In no apparent distress, Oriented x3 HEENT: Atraumatic, Mucous membr. moist/pink, EOMI, Sclerae nonicteric Neck: JVD distended (minimally) Respiratory: Crackles/rales (bibasilar) Cardiovascular: Normal pulses, Regular rate/rhythm, Normal S1 S2, No gallops, No rubs, No murmurs, Edema (2+ BLE) Gastrointestinal: Normal bowel sounds, Soft and benign, Non-distended, No tenderness, No rebound, No guarding Musculoskeletal: No clubbing Integumentary: No rashes Neurological: Normal speech, Cranial nerves 3-12 intact, Normal affect # Acute Decompensated Diastolic Congestive Heart Failure with Preserved Ejection Fraction # Moderate Pulmonary Hypertension # Moderate Mitral Regurgitation # Moderate Tricuspid Regurgitation - Consult Cardiology and spoke with Dr. Appiah - recommendations appreciated - Transthoracic echocardiogram = "1. low normal ejection fraction of 50% 2. mild global hypokinesis 3. moderate diastolic dysfunction 4. moderate mitral regurgitation 5. moderate pulmonary hypertension with right ventricular systolic pressure of 55-60 mmhg 6. moderate tricuspid regurgitation 7. left atrial enlargement 8. mild mitral stenosis" - Diuresis with IV furosemide for today - NT-Pro BNP = 5150 - Daily weights - Strict I/O - Cardiac diet, 1.5 L fluid restriction, 2 g Na restriction # Suspect Type II Non-ST Segment Elevation Myocardial Infarction (Demand Ischemia) due to above # Coronary Artery Disease s/p PCI # Hypertension # Dyslipidemia - Evaluation thus far: - EKG: no reported STEMI criteria, trend - Serial troponin: 224.2 -> 211.9 -> 274.8 -> 256.8 - Transthoracic echocardiogram = "1. low normal ejection fraction of 50% 2. mild global hypokinesis 3. moderate diastolic dysfunction 4. moderate mitral regurgitation 5. moderate pulmonary hypertension with right ventricular systolic pressure of 55-60 mmhg 6. moderate tricuspid regurgitation 7. left atrial enlargement 8. mild mitral stenosis" - D-dimer = 1336 - CT chest angiogram = "no evidence of pulmonary thromboembolism. Linear atelectasis or early infiltrate in the right base. Small to moderate right pleural effusion." - Management plan: - Consult Cardiology and spoke with Dr. Appiah- recommendations appreciated - S/P aspirin 325 mg PO x 1 at [facility] - Continue aspirin, atorvastatin, enoxaparin - If cardiac ischemia confirmed, plan to start beta-tala, ELMO-inhib itor/ARB as tolerated # Type II Diabetes Mellitus - Hgb A1c = 6.5 % - Correction scale insulin # Tobacco Use Disorder - Tobacco cessation counseling provided - Nicotine patch offered # Hypothyroidism - Continue home levothyroxine # Chronic Obstructive Pulmonary Disease - Does not appear to be in acute exacerbation - Resume home medications once verified Kingsley Landon M.D.
--- NOTE | 2022-03-09 19:44 | CON ---
Date of Consultation: 03/09/2022 Reason For Consultation: Congestive heart failure exacerbation. History Of Present Illness: This is a 71-year-old male with a past medical history of diabetes, callum estive heart failure, hypertension, hypothyroidism, coronary artery disease, and COPD who presented w ith lower extremity edema, shortness of breath, and orthopnea and diagnosed with CHF exacerbation. Rod casey had massive edema and started on Lasix. He started to urinate very well and feeling better signifi cantly and is asking to go home. Denies having any chest pain. Past Medical History: As outlined above in HPI. Medications: Refer to reconciliation sheet for detailed list. Allergies: NO KNOWN DRUG ALLERGIES. Family History: No premature coronary artery disease or cancer. Social History: Does not smoke or drink. Does not use any drugs. Review of Systems: All systems reviewed and they were negative except for mentioned in HPI. Physical Examination: Vital Signs: Reviewed. Head And Neck: Pupils are equal and reactive to light. Intact eye movements. No JVD. No cervical lymphadenopathy. Neck is supple. Thyroid is not enlarged. Lungs: Positive bilateral air entry with decreased breathing sounds and faint crackles in bases. No accessory muscle use or muscle retraction. Heart: Regular rate and rhythm. Tachycardic. Abdomen: Soft, nontender. Bowel sounds positive. No organomegaly. No masses or hernia. No rigidi ty or rebound. Extremities: No clubbing or cyanosis. 3 to 4+ pitting edema. Neurologic: Alert, awake, and oriented x3. No acute focal deficits appreciated. Lymph Nodes: No cervical or axillary adenopathy. Investigations: Troponin peaked at 274 and is trending down. BUN is 20 and creatinine is 1.39. Assessment/recommendation: 1.Sueoo-[id number] diastolic heart failure exacerbation with massive lower extremity edema, improvin g with diuretics. Continue current management of Lasix. Monitor BUN, creatinine, and electrolytes. 2.Elevated troponin. This is likely due to demand and no further cardiac workup is needed as an inp atient; however, outpatient stress test will be recommended. 3.Recommend strict low-sodium diet and daily body weight and carefully monitor the BUN, creatinine, and electrolytes with diuresis. SR/MODL Voice ID: [id number] Report ID: [id number]
[2022-03-09] MEDS: ATORVASTATIN 40 MG TAB PO SCH (20:34)
[2022-03-10 06:31] LABS: Magnesium 1.8 mg/dL (1.6-2.4); Potassium 3.2 mmol/L (3.5-5.1)
[2022-03-10] MEDS ORDERED: POTASSIUM CL SA 10 MEQ TAB PO ONE (07:20)
[2022-03-10] MEDS ORDERED: MAGNESIUM SULFATE 1 gm IVPB 1 GM/100 ML BAG IV ONE (07:21)
[2022-03-10] MEDS: INSULIN -REGULAR HUMAN 50 UNIT/0.5 ML ML SQ SCH ×4 (07:30→21:00)
[2022-03-10] MEDS: FUROSEMIDE 40 MG/4 ML VIAL IV SCH ×2 (08:27→15:58)
[2022-03-10] MEDS: ENOXAPARIN 80 MG/0.8 ML SQ SCH ×2 (08:27→20:18)
[2022-03-10] MEDS: ASPIRIN EC 81 MG TAB PO SCH (08:27)
[2022-03-10] MEDS: SPIRONOLACTONE 25 MG TABLET PO SCH ×2 (08:27→20:18)
[2022-03-10] MEDS: POTASSIUM CL SA 10 MEQ TAB PO SCH (08:28)
--- NOTE | 2022-03-10 14:49 | PN ---
Date of Progress Note: 03/10/2022 Subjective: Seen at bedside, doing better. Review of Systems: No chest pain. Mild shortness of breath on exertion. Lower extremity edema is present. No nausea, vomiting, or diarrhea. All other systems reviewed are negative. Physical Examination: Vital Signs: Reviewed. Head and Neck: Pupils are equal, reactive to light. Intact eye movements. No JVD. No cervical lym phadenopathy. Neck is supple. Thyroid is not enlarged. Lungs: Decreased breathing sounds, but no rhonchi, wheezing, or crackles. Heart: Regular. No extra sounds. Abdomen: Soft, nontender. Bowel sounds positive. No organomegaly. No masses or hernia. No rigidi ty or rebound. Extremities: Edema bilaterally. No clubbing, cyanosis, but with improvement. Skin: No rash. Neurologic: Alert, awake. No acute focal deficits appreciated. Investigations: Labs were reviewed. BUN is 20, creatinine is 1.39 and today is 1.28. Assessment/recommendations: 1.Acute on chronic diastolic heart failure exacerbation. Continue IV Lasix. Aldactone was added. Monitor BUN, creatinine, electrolytes, and plan to switch him to oral Lasix within next 24 hours in a nticipation for discharge. 2.Elevated troponin. This is demand ischemia. No chest pain. No further workup is needed. SR/MODL Voice ID: [id number] Report ID: [id number]
--- NOTE | 2022-03-10 19:32 | P.PN ---
Subjective Date of Service: 03/10/22 Chief Complaint: CHF Exacerbation No acute events overnight. He reports that his breathing continues to improve. He reports persistent orthopnea and lower extremity edema; however, this is gradually improving. Review of Systems 10-point ROS is otherwise unremarkable Respiratory: Shortness of Breath Cardiovascular: Orthopnea, Edema Physical Examination - Vital Signs Temperature: 97.9 F Blood Pressure: 123/75 Pulse: 102 Respirations: 20 Pulse Ox (%): 98 - Studies Laboratory Data (last 24 hrs) 03/10/22 14:23: Potassium 4.5 D 03/10/22 05:56: Sodium 138, Potassium 3.2 L D, BUN 23 H, Creatinine 1.28, Glucose 90, Magnesium 1.8 Assessment And Plan - Plan - Physical Exam General: Alert, In no apparent distress, Oriented x3 HEENT: Atraumatic, Mucous membr. moist/pink, EOMI, Sclerae nonicteric Neck: JVD distended (minimally) Respiratory: Crackles/rales (bibasilar) Cardiovascular: Normal pulses, Regular rate/rhythm, Normal S1 S2, No gallops, No rubs, No murmurs, Edema (2+ BLE) Gastrointestinal: Normal bowel sounds, Soft and benign, Non-distended, No tenderness, No rebound, No guarding Musculoskeletal: No clubbing Integumentary: No rashes Neurological: Normal speech, Cranial nerves 3-12 intact, Normal affect # Acute Decompensated Diastolic Congestive Heart Failure with Preserved Ejection Fraction # Moderate Pulmonary Hypertension # Moderate Mitral Regurgitation # Moderate Tricuspid Regurgitation - Consult Cardiology and spoke with Dr. Appiah - recommendations appreciated - Transthoracic echocardiogram = "1. low normal ejection fraction of 50% 2. mild global hypokinesis 3. moderate diastolic dysfunction 4. moderate mitral regurgitation 5. moderate pulmonary hypertension with right ventricular systolic pressure of 55-60 mmhg 6. moderate tricuspid regurgitation 7. left atrial enlargement 8. mild mitral stenosis" - Diuresis with IV furosemide for today - NT-Pro BNP = 5150 - Daily weights - Strict I/O - Cardiac diet, 1.5 L fluid restriction, 2 g Na restriction # Suspect Type II Non-ST Segment Elevation Myocardial Infarction (Demand Ischemia) due to above # Coronary Artery Disease s/p PCI # Hypertension # Dyslipidemia - Evaluation thus far: - EKG: no reported STEMI criteria, trend - Serial troponin: 224.2 -> 211.9 -> 274.8 -> 256.8 - Transthoracic echocardiogram = "1. low normal ejection fraction of 50% 2. mild global hypokinesis 3. moderate diastolic dysfunction 4. moderate mitral regurgitation 5. moderate pulmonary hypertension with right ventricular systolic pressure of 55-60 mmhg 6. moderate tricuspid regurgitation 7. left atrial enlargement 8. mild mitral stenosis" - D-dimer = 1336 - CT chest angiogram = "no evidence of pulmonary thromboembolism. Linear atelectasis or early infiltrate in the right base. Small to moderate right pleural effusion." - Management plan: - Consult Cardiology and spoke with Dr. Appiah- recommendations appreciated - S/P aspirin 325 mg PO x 1 at [facility] - Continue aspirin, atorvastatin, enoxaparin - If cardiac ischemia confirmed, plan to start beta-tala, ELMO-i nhibitor/ARB as tolerated - I/O = -4.3 L since admission # Type II Diabetes Mellitus - Hgb A1c = 6.5 % - Correction scale insulin # Tobacco Use Disorder - Tobacco cessation counseling provided - Nicotine patch offered # Hypothyroidism - Continue home levothyroxine # Chronic Obstructive Pulmonary Disease - Does not appear to be in acute exacerbation - Resume home medications once verified Kingsley Landon M.D.
[2022-03-10] MEDS: ATORVASTATIN 40 MG TAB PO SCH (20:22)
--- NOTE | 2022-03-10 22:23 | P.PN ---
Date of Service: 03/10/22 Vital Signs Temp Pulse Resp BP Pulse Ox 97.1 F 51 19 152/63 H 96 03/10/22 20:00 03/10/22 20:00 03/10/22 20:00 03/10/22 20:18 03/10/22 20:00 Medications Acetaminophen (Acetaminophen 500 Mg Tab) 500 mg PO Q4HP PRN PRN Reason: Pain scale 2-4 (Mild) Albuterol Sulfate (Albuterol 2.5 Mg/3 Ml Neb Haylee) 2.5 mg NEB [id number] PRN PRN Reason: SHORTNESS OF BREATH Aspirin (Aspirin Ec 81 Mg Tab) 81 mg PO DAILY [facility] Last Admin: 03/10/22 08:27 Dose: 81 mg Atorvastatin Calcium (Atorvastatin 40 Mg Tab) 40 mg PO BEDTIME [facility] Last Admin: 03/10/22 20:22 Dose: 40 mg Enoxaparin Sodium (Enoxaparin 80 Mg/0.8 Ml) 70 mg SQ Q12HR [facility] Last Admin: 03/10/22 20:18 Dose: 70 mg Furosemide (Furosemide 40 Mg/4 Ml Vial) 40 mg IV BIDL [facility] Last Admin: 03/10/22 15:58 Dose: 40 mg Glucagon (Glucagon 1 Mg/Vial) 1 mg IM 1X PRN; Protocol PRN Reason: HYPOGLYCEMIA Dextrose (Dextrose 10% Water Iv Soln.) 125 mls @ 0 mls/hr IV PRN PRN; Protocol PRN Reason: HYPOGLYCEMIA Insulin Human Regular (Insulin -Regular Human 50 Unit/0.5 Ml Ml) 0 unit SQ ACHS [facility]; Protocol Last Admin: 03/10/22 21:00 Dose: Not Given Ondansetron HCl (Ondansetron 4 Mg/2 Ml Vial) 4 mg IV Q6HP PRN PRN Reason: NAUSEA / VOMITING Potassium Chloride (Potassium Cl Sa 10 Meq Tab) 20 meq PO DAILY [facility] Last Admin: 03/10/22 08:28 Dose: 20 meq Sodium Chloride (Flush Normal Saline 10 Ml) 10 ml IV BID [facility] Last Admin: 03/10/22 20:23 Dose: 10 ml Spironolactone (Spironolactone 25 Mg Tablet) 25 mg PO BID [facility] Last Admin: 03/10/22 20:18 Dose: 25 mg Lab Results (last 24 hrs) 03/10/22 19:52: POC Glucose 105 03/10/22 15:28: POC Glucose 135 H 03/10/22 14:23: Potassium 4.5 D 03/10/22 11:22: POC Glucose 151 H 03/10/22 07:15: POC Glucose 131 H 03/10/22 05:56: Sodium 138, Potassium 3.2 L D, Chloride 98, Carbon Dioxide 33 H, Anion Gap 10.2, BUN 23 H, Creatinine 1.28, Est GFR (CKD-EPI) 61 L, Glucose 90, Calcium 8.4 L, Magnesium 1.8 Assessment/ Plan: Nephrology Improving dyspnea No chest pain No acute events overnight Vitals, medications, blood work and imaging reviewed in the chart. General: Oriented x3, Cooperative HEENT: Atraumatic Neck: Supple Respiratory: Diminished Cardiovascular: Regular rate/rhythm, Edema Gastrointestinal: Soft and benign, Non-distended Musculoskeletal: No clubbing, No contractures Integumentary: No rashes, No cyanosis Neurological: Normal speech Laboratory Data (last 24 hrs) 03/08/22 04:50: WBC 9.80, Hgb 13.6, Hct 43.7, Plt Count 183 03/08/22 04:40: Sodium 141, Potassium 3.6, BUN 16, Creatinine 1.30, Glucose 88, Magnesium 1.8, Triglycerides 80, Cholesterol 101, HDL Cholesterol 39 L, Cholesterol/HDL Ratio 2.59 Imagings Data: [facility] EXAM DESCRIPTION: US - CP - 03/08/2022 5:21 pm CLINICAL HISTORY: follow up carotid stent Neck pain and swelling COMPARISON: CAROTID ARTERY BILATERAL dated 12/29/2014 TECHNIQUE: Real-time sonographic evaluation of both carotid systems was performed. Doppler interrogation was performed with waveform tracing bilater ally. FINDINGS: Moderately severe atheromatous plaquing is present involving the right carotid bulb. This results in 50-70% stenosis estimated based on NASCET criteria. The left internal carotid artery demonstrates significant diminishment flow proximally. The mid and distal left internal carotid artery demonstrates elevated flow velocity. Patient reports the presence of a left internal carotid artery stent, although a clear stent is not seen and may be nearly occluded given the very diminished flow. Antegrade flow is seen in both vertebral arteries. IMPRESSION: Patient reports a history of left internal carotid stent. The stent is difficult to visualize sonographically and may be near occluded or occluded. Very minimal flow is seen in the left internal carotid artery proximal lumen. 50-70% stenosis suspected proximal right internal carotid artery based on NASCET criteria and cause predominately by heavy plaquing. CTA or MRA of the neck vessels would be recommended for further evaluation. [facility] EXAM DESCRIPTION: CT - Chest For Pe Angio - 03/08/2022 5:44 pm CLINICAL HISTORY: Chest pain. elevated d-dimer COMPARISON: Thorax Wo Con dated 07/22/2020 TECHNIQUE: CT angiogram of the pulmonary arteries was performed with MIP. All CT scans are performed using dose optimization technique as appropriate and may include automated exposure control or mA/KV adjustment according to patient size. FINDINGS: No evidence of pulmonary thromboembolism. No acute aortic finding demonstrated. The lungs are mildly emphysematous with linear atelectasis versus mild infiltrate in the right lung base. Small to moderate right pleural effusion. No concerning bony finding. IMPRESSION: No evidence of pulmonary thromboembolism. Linear atelectasis or early infiltrate in the right base. Small to moderate right pleural effusion. [facility] SA LEFT VENTRICULAR WALL MOTION: MILD GLOBAL HYPOKINESIS DOPPLER/COLOR FLOW: SEE BELOW COMMENTS: 1. LOW NORMAL EJECTION FRACTION OF 50% 2. MILD GLOBAL HYPOKINESIS 3. MODERATE DIASTOLIC DYSFUNCTION 4. MODERATE MITRAL REGURGITATION 5. MODERATE PULMONARY HYPERTENSION WITH RIGHT VENTRICULAR SYSTOLIC PRESSURE OF 55-60 mmHg 6. MODERATE TRICUSPID REGURGITATION 7. LEFT ATRIAL ENLARGEMENT 8. MILD MITRAL STENOSIS Conclusions/Impression: Stage I MILLICENT likely CRS CKD III with proteinuria -No NSAIDs Hypokalemia -Replete potassium -Increase spironolactone BID HTN with CKD/ CHF -Monitor BP Diastolic CHF, A/C Moderate Pulmonary HTN Moderate TR & MR -Continue Lasix BID -Continue Spironolactone DM II with CKD -RISS Hypoalbuminemia -Consider protein supplementation
[2022-03-11 05:07] LABS: Magnesium 1.9 mg/dL (1.6-2.4); Potassium 4.3 mmol/L (3.5-5.1)
[2022-03-11] MEDS: INSULIN -REGULAR HUMAN 50 UNIT/0.5 ML ML SQ SCH ×4 (07:30→21:00)
[2022-03-11] MEDS: FUROSEMIDE 40 MG/4 ML VIAL IV SCH (08:39)
[2022-03-11] MEDS: POTASSIUM CL SA 10 MEQ TAB PO SCH (08:41)
[2022-03-11] MEDS: ENOXAPARIN 80 MG/0.8 ML SQ SCH ×2 (08:41→20:36)
[2022-03-11] MEDS: SPIRONOLACTONE 25 MG TABLET PO SCH ×2 (08:41→20:35)
[2022-03-11] MEDS: ASPIRIN EC 81 MG TAB PO SCH (08:41)
--- NOTE | 2022-03-11 11:22 | P.PN ---
Nephrology note: (S) Pt reports no dyspnea, has ambulated without issues, is lost fluid weight, peripheral edema present but improved (O) Vitals reviewed in the EMR General: NAD, non tachypnec HEENT: Atraumatic, sclera anicteric, not on O2 Neck: Supple Respiratory: b/l air entry, diminished at bases mildly Cardiovascular: Regular rate/rhythm mostly, 1+ pitting edema below knee b/l Gastrointestinal: Soft, ND, NT Musculoskeletal: No clubbing, No contractures Integumentary: No rashes, No cyanosis Neurological: Normal speech, awake, alert, responsive, non focal Laboratory Data (last 24 hrs) Reviewed in the EMR Conclusions/Impression: Abnormal results of kidney function studies. CKD II/IIIa Monitor renal function closely as an OP with diuresis, adjusment in meds. Low EROS risk at this time Hypokalemia -Resolved NSTEMI/troponin leak. Cardiomyopathy unspecified. Acute systolic + diastolic CHF, pulm HTN 2nd to left sided heart disease -Switched to PO lasix, spironolactone added. -Will defer to Cardiology to see if would benefit from addition of Entresto, if that is added, would lower Spironolactone at that time. If SGLT2i agent added back, would potentially adjust/lower Lasix dose. Will need close OP monitoring Jose Sosa MD, IRA
--- NOTE | 2022-03-11 20:09 | PN ---
Date of Progress Note: 03/11/2022 Subjective: Seen by bedside. Continues to improve. Review of Systems: There is no chest pain. No shortness of breath, orthopnea, cough, nausea, vomiting, diarrhea. Has l ower extremity edema. All other systems reviewed are negative. Physical Examination: Vital Signs: Reviewed. Head and Neck: Pupils are equal, reactive to light. Intact eye movements. No JVD. No cervical lym phadenopathy. Neck: Supple. Thyroid is not enlarged. Lungs: Clear to auscultation bilaterally. No rhonchi, wheezing, or crackles. No accessory muscle u se. Heart: Regular rate and rhythm. No extra sounds. Abdomen: Soft, nontender. Bowel sounds positive. No organomegaly. No masses or hernia. No rigidi ty or rebound. Extremities: Edema bilaterally with improvement. No clubbing, cyanosis. Intact pulses. Skin: No rash. Neurologic: Alert, awake, oriented x3. No acute focal deficits appreciated. Investigations: BUN 20, creatinine 1.39. Assessment And Recommendation: 1.Acute on chronic congestive heart failure exacerbation, improving. He was switched appropriately to oral Lasix. The patient can be released in the next 24 hours if breathing status continues to be stable. 2.Elevated troponin. This is due to demand ischemia. We will plan for outpatient stress test evalu ation. /SOLANGE Voice ID: [id number] Report ID: [id number]
--- NOTE | 2022-03-11 20:12 | P.PN ---
Subjective Date of Service: 03/11/22 Chief Complaint: CHF Exacerbation No acute events overnight. He reports that his breathing continues to improve. With ambulation, he de-satted into the upper-80s. Will require home oxygen. CM assistance appreciated. Review of Systems 10-point ROS is otherwise unremarkable Respiratory: Shortness of Breath Cardiovascular: Orthopnea, Edema Physical Examination - Vital Signs Temperature: 97.8 F Blood Pressure: 107/63 Pulse: 101 Respirations: 20 Pulse Ox (%): 92 - Studies Laboratory Data (last 24 hrs) 03/11/22 03:53: Sodium 137, Potassium 4.3, BUN 25 H, Creatinine 1.34 H, Glucose 103, Magnesium 1.9 Assessment And Plan - Plan - Physical Exam General: Alert, In no apparent distress, Oriented x3 HEENT: Atraumatic, Mucous membr. moist/pink, EOMI, Sclerae nonicteric Neck: JVD not distended Respiratory: Crackles/rales (faint bibasilar) Cardiovascular: Normal pulses, Regular rate/rhythm, Normal S1 S2, No gallops, No rubs, No murmurs, Edema (1+ BLE) Gastrointestinal: Normal bowel sounds, Soft and benign, Non-distended, No tenderness, No rebound, No guarding Musculoskeletal: No clubbing Integumentary: No rashes Neurological: Normal speech, Cranial nerves 3-12 intact, Normal affect # Acute Hypoxic Respiratory Failure secondary to Acute Decompensated Diastolic Congestive Heart Failure with Preserved Ejection Fraction # Moderate Pulmonary Hypertension # Moderate Mitral Regurgitation # Moderate Tricuspid Regurgitation - Consult Cardiology and spoke with Dr. Appiah - recommendations appreciated - Transthoracic echocardiogram = "1. low normal ejection fraction of 50% 2. mild global hypokinesis 3. moderate diastolic dysfunction 4. moderate mitral regurgitation 5. moderate pulmonary hypertension with right ventricular systolic pressure of 55-60 mmhg 6. moderate tricuspid regurgitation 7. left atrial enlargement 8. mild mitral stenosis" - Diuresis with IV furosemide - transition to PO over next 24 hours per Cardiology - NT-Pro BNP = 5150 - Daily weights - Strict I/O - Cardiac diet, 1.5 L fluid restriction, 2 g Na restriction - CM consulted for assistance with home oxygen # Suspect Type II Non-ST Segment Elevation Myocardial Infarction (Demand Ischemia) due to above # Coronary Artery Disease s/p PCI # Hypertension # Dyslipidemia - Evaluation thus far: - EKG: no reported STEMI criteria, trend - Serial troponin: 224.2 -> 211.9 -> 274.8 -> 256.8 - Transthoracic echocardiogram = "1. low normal ejection fraction of 50% 2. mild global hypokinesis 3. moderate diastolic dysfunction 4. moderate mitral regurgitation 5. moderate pulmonary hypertension with right ventricular systolic pressure of 55-60 mmhg 6. moderate tricuspid regurgitation 7. left atrial enl argement 8. mild mitral stenosis" - D-dimer = 1336 - CT chest angiogram = "no evidence of pulmonary thromboembolism. Linear atelectasis or early infiltrate in the right base. Small to moderate right pleural effusion." - Management plan: - Consult Cardiology and spoke with Dr. Appiah- recommendations appreciated - S/P aspirin 325 mg PO x [address] [facility] - Continue aspirin, atorvastatin, enoxaparin - If cardiac ischemia confirmed, plan to start beta-tala, ELMO- inhibitor/ARB as tolerated - I/O = -4.3 L since admission # Type II Diabetes Mellitus - Hgb A1c = 6.5 % - Correction scale insulin # Tobacco Use Disorder - Tobacco cessation counseling provided - Nicotine patch offered # Hypothyroidism - Continue home levothyroxine # Chronic Obstructive Pulmonary Disease - Does not appear to be in acute exacerbation - Resume home medications once verified Kingsley Landon M.D.
[2022-03-11] MEDS: ATORVASTATIN 40 MG TAB PO SCH (20:36)
[2022-03-12 05:34] LABS: Potassium 4.7 mmol/L (3.5-5.1)
[2022-03-12] MEDS: INSULIN -REGULAR HUMAN 50 UNIT/0.5 ML ML SQ SCH (07:30)
[2022-03-12 08:40] VITALS: BP 118/72; TEMP 96.9
[2022-03-12] MEDS ORDERED: FUROSEMIDE 40 MG TABLET PO SCH (09:00)
[2022-03-12] MEDS: POTASSIUM CL SA 10 MEQ TAB PO SCH (09:10)
[2022-03-12] MEDS: ASPIRIN EC 81 MG TAB PO SCH (09:10)
[2022-03-12] MEDS: SPIRONOLACTONE 25 MG TABLET PO SCH (09:12)
[2022-03-12] MEDS: ENOXAPARIN 80 MG/0.8 ML SQ SCH (09:13)
[2022-03-12 09:37] VITALS: O2SAT 96
--- NOTE | 2022-03-12 10:31 | RAD REPORT ---
EXAM DESCRIPTION: CT - Neck Angio - 03/12/2022 8:16 am CLINICAL HISTORY: carotid stenosis Neck pain, dizziness, headache COMPARISON: Carotid Artery Bilateral dated 03/08/2022 TECHNIQUE: CT angiography of the neck vessels was performed with MIPs. All CT scans are performed using dose optimization technique as appropriate and may include automated exposure control or mA/KV adjustment according to patient size. FINDINGS: A left aortic arch is identified with normal three vessel configuration of the great vesse ls. There is heavy atherosclerotic plaque buildup at the origin of the left subclavian artery. Both common carotid arteries and vertebral arteries appear patent. There is no visible flow within the left internal carotid artery distal to the bifurcation compatible with complete occlusion. There is moderate irregular mixed plaque at the origin of the right interna l carotid artery resulting stenosis estimated at 50% based on NASCET criteria. Normal flow is seen within both vertebral arteries. Intracranially there appears to be reconstitution of flow to the left M1 from intact [place] of [place] collateral flow. IMPRESSION: Complete occlusion of the left internal carotid artery. Moderate 50% stenosis suspected proximal right internal carotid artery with irregular mixed plaque pr esent.
--- NOTE | 2022-03-12 11:28 | P.DS ---
Admission Date: 03/07/22 Discharge Date: 03/12/22 Disposition: ROUTINE DISCHARGE Discharge Condition: GOOD Reason for Admission: CHF Exacerbation Consultations: 1. Cardiology 2. Nephrology Hospital Course: DIAGNOSES: # Acute Hypoxic Respiratory Failure secondary to Acute Decompensated Diastolic Congestive Heart Failure with Preserved Ejection Fraction # Suspect Type II Non-ST Segment Elevation Myocardial Infarction (Demand Ischemia) due to above # Bilateral Carotid Artery Stenosis s/p LICA stent (Left 100 % occluded, Right 50-70 % occluded) # Moderate Pulmonary Hypertension # Coronary Artery Disease s/p PCI # Chronic Obstructive Pulmonary Disease # Chronic Kidney Disease Stage III # Type II Diabetes Mellitus # Moderate Mitral Regurgitation # Moderate Tricuspid Regurgitation # Tobacco Use Disorder # Hypothyroidism # Hypertension # Dyslipidemia HOSPITAL COURSE: Mr. Thomas Villanueva is a pleasant 71-year-old male with a past medical history significant for coronary artery disease s/p PCI, chronic kidney disease stage III, hypertension, type 2 diabetes mellitus, dyslipidemia, hypothyroidism, chronic obstructive pulmonary disease, and tobacco use disorder who was admitted to the [facility] on 03/07/2022 for shortness of breath. He was admitted to the Medicine service. Upon further evaluation, he was found to have an acute decompensated congestive heart failure. Cardiology was consulted and he was evaluated by Dr. Appiah. He was treated with aggressive IV diuresis, with significant improvement in his symptoms. His evaluation was notable for an elevated, but flat troponin trend as well as a transthoracic echocardiogram with, "1. low normal ejection fraction of 50% 2. mild global hypokinesis 3. moderate diastolic dysfunction 4. moderate mitral regurgitation 5. moderate pulmonary hypertension with right ventricular systolic pressure of 55-60 mmhg 6. moderate tricuspid regurgitation 7. left atrial enlargement 8. mild mitral stenosis." Dr. Appiah felt that his troponin trend represented demand ischemia and he has cleared him for discharge with outpatient follow-up with an outpatient cardiac stress test. Despite improvement in his symptoms, he continued to demonstrate hypoxia with ambulation. He qualified for home oxygen, and with the assistance of case management this was arranged for him. Additionally, he had mentioned that he was due to have his carotid stent followed up on with an ultrasound. A carotid ultrasound was ordered which revealed, "the stent is difficult to visualize sonographically and may be near occluded or occluded. Very minimal flow is seen in the left internal carotid artery proximal lumen. 50-70% stenosis suspected proximal right internal carotid artery based on NASCET criteria and cause predominately by heavy plaquing. CTA or MRA of the neck vessels would be recommended for further evaluation." A CT neck angiogram revealed, "complete occlusion of the left internal carotid artery. Moderate 50% stenosis suspected proximal right internal carotid artery with irregular mixed plaque present." His case was reviewed with Dr. Smith (Neurology), who stated that these findings are likely chronic in nature. He recommended aspirin, atorvastatin, clopidogrel, and folic acid. He recommended that he be discharged with a outpatient follow-up appointment with him. Dr. Smith states that he will assist in arranging a neurovascular consultation. On 03/12/2022, he was seen on morning rounds and deemed medically stable for discharge. He was discharged with instructions to schedule follow-up appointments with his PCP, with Cardiology (Dr. Appiah), with Nephrology (Dr. Sosa), and Neurology (Dr. Smith). He was provided prescriptions for furosemide, atorvastatin, and spironolactone. He was given the opportunity to ask questions and reported no further questions. Furthermore, all questions were answered to the best of my ability. A copy of this discharge summary will be sent to the above providers to facilitate continuity of care. Today, I personally spent 35 minutes on his case, of which greater than 50% of the time was spent in patient education, counseling, and coordination of care as described above. - Physical Exam General: Alert, In no apparent distress, Oriented x3 HEENT: Atraumatic, Mucous membr. moist/pink, EOMI, Sclerae nonicteric Neck: JVD not distended Respiratory: Clear to auscultation bilaterally without wheezes, rhonchi, or ra les Cardiovascular: Normal pulses, Regular rate/rhythm, Normal S1 S2, No gallops, No rubs, No murmurs, Edema (1+ BLE) Gastrointestinal: Normal bowel sounds, Soft and benign, Non-distended, No tenderness, No rebound, No guarding Musculoskeletal: No clubbing Integumentary: No rashes Neurological: Normal speech, Cranial nerves 3-12 intact, Normal affect Vital Signs/Physical Exam: Temp Pulse Resp BP Pulse Ox 96.9 F 104 H 16 118/72 97 03/12/22 08:00 03/12/22 09:12 03/12/22 08:00 03/12/22 09:12 03/12/22 08:00 Laboratory Data at Discharge: WBC 9.80 K/uL (4.3-10.9) 03/08/22 04:50 Hgb 13.6 g/dL (13.6-17.9) 03/08/22 04:50 Hct 43.7 % (39.6-49.0) 03/08/22 04:50 Plt Count 183 K/uL (152-406) 03/08/22 04:50 PT 14.7 SECONDS (9.5-12.5) H 03/07/22 19:51 INR 1.34 03/07/22 19:51 APTT 34.8 SECONDS (24.3-36.9) 03/07/22 19:51 Sodium 133 mmol/L (136-145) L 03/12/22 04:33 Potassium 4.7 mmol/L (3.5-5.1) 03/12/22 04:33 BUN 28 mg/dL (7-18) H 03/12/22 04:33 Creatinine 1.30 mg/dL (0.70-1.30) 03/12/22 04:33 Glucose 95 mg/dL (74-106) 03/12/22 04:33 Magnesium 2.0 mg/dL (1.6-2.4) 03/12/22 04:33 Total Bilirubin 1.2 mg/dL (0.2-1.0) H 03/07/22 19:51 AST 33 U/L (15-37) 03/07/22 19:51 ALT 20 U/L (16-61) 03/07/22 19:51 Alkaline Phosphatase 154 U/L (45-117) H 03/07/22 19:51 Triglycerides 80 mg/dL (<150) 03/08/22 04:40 Cholesterol 101 mg/dL (<200) 03/08/22 04:40 HDL Cholesterol 39 mg/dL (40-60) L 03/08/22 04:40 Cholesterol/HDL Ratio 2.59 03/08/22 04:40 Home Medications: Budesonide/Glycopyr/Formoterol [Breztri Aerosphere Inhaler] 2 puff IH BID 03/08/22 Clopidogrel Bisulfate [Plavix] 1 tab PO DAILY 03/08/22 Empagliflozin [Jardiance] 1 tab PO DAILY 03/08/22 Finasteride 1 tab PO DAILY 03/08/22 Gabapentin 1 cap PO BEDTIME 03/08/22 Levothyroxine [Synthroid*] 1 tab PO DAILY 03/08/22 Montelukast Sodium [Singulair] 1 tab PO DAILY 03/08/22 Aspirin Chewable [Aspirin Chewable*] 81 mg PO DAILY #1 tab.chew 03/12/22 Atorvastatin Calcium [Lipitor] 40 mg PO BEDTIME #30 tab 03/12/22 Folic Acid 1 mg PO DAILY #1 03/12/22 Furosemide [Lasix*] 40 mg PO DAILY #30 tab 03/12/22 Spironolactone [Aldactone*] 25 mg PO DAILY #30 tab 03/12/22 New Medications: Spironolactone [Aldactone*] 25 mg PO DAILY #30 tab Aspirin Chewable [Aspirin Chewable*] 81 mg PO DAILY #1 tab.chew Folic Acid 1 mg PO DAILY #1 Furosemide [Lasix*] 40 mg PO DAILY #30 tab Atorvastatin Calcium [Lipitor] 40 mg PO BEDTIME #30 tab Physician Discharge Instructions: 1. Please call and schedule a follow-up appointment with your PCP in 3-5 days 2. Please call and schedule a follow-up appointment with Cardiology (Dr. Appiah) in 1 week - He will likely schedule you for an outpatient cardiac stress test 3. Please call and schedule a follow-up appointment with Nephrology (Dr. Sosa) in 1 week 4. Please call and schedule a follow-up appointment with Neurology (Dr. Smith) in 1 week - He will schedule you with a Neuro-Vascular Surgeon to address the narrowing in your neck arteries Diet: AHA Activity: Ad jayy Followup: Jose Sosa [ACTIVE - CAN ADMIT] - 1 Week Tyrell Smith MD [ASSOCIATE-ACTIVE - CAN ADMIT] - 1 Week (He will refer you to a neurosurgeon ) aRmon Appiah MD [ACTIVE - CAN ADMIT] - 1 Week Time spent managing pt's care (in minutes): 35
== END 2022-03-12 11:53 | disposition home or self-care (01) | DRG 280 ==
LOC: 4TH 18:56
PROVIDERS: ADMIT Internal Medicine; ATTEND Internal Medicine
DX: I13.0 Hypertensive heart and chronic kidney disease with heart failure and stage 1 through stage 4 chronic kidney disease, or unspecified chronic kidney disease (principal); I50.33 Acute on chronic diastolic (congestive) heart failure; I21.A1 Myocardial infarction type 2; J96.01 Acute respiratory failure with hypoxia; N17.9 Acute kidney failure, unspecified; N18.31 Chronic kidney disease, stage 3a; E11.22 Type 2 diabetes mellitus with diabetic chronic kidney disease; E78.5 Hyperlipidemia, unspecified; E87.6 Hypokalemia; I42.9 Cardiomyopathy, unspecified; E03.9 Hypothyroidism, unspecified; I27.22 Pulmonary hypertension due to left heart disease; I08.1 Rheumatic disorders of both mitral and tricuspid valves; E88.09 Other disorders of plasma-protein metabolism, not elsewhere classified; J44.9 Chronic obstructive pulmonary disease, unspecified; I25.10 Atherosclerotic heart disease of native coronary artery without angina pectoris; F17.200 Nicotine dependence, unspecified, uncomplicated; R94.4 Abnormal results of kidney function studies; R31.29 Other microscopic hematuria; Z95.5 Presence of coronary angioplasty implant and graft; Z79.890 Hormone replacement therapy
CPT/HCPCS: 36415; 70498; 71275; 80048; 80053; 80061; 81001; 82550; 82553; 82947; 83036; 83735; 83880; 84132; 84443; 84484; 85025; 85027; 85379; 85610; 85730; 93306; 93880; 94760; J1650; J1940; J3475; Q9967

== ENCOUNTER 2022-05-03 12:30 | Day surgery (SDC) | payer BC ==
--- NOTE | 2022-04-28 14:02 | RAD REPORT ---
EXAM DESCRIPTION: RAD - Chest Pa And Lat (2 Views) - 04/28/2022 1:55 pm CLINICAL HISTORY: Preop for carotid angiogram. Hypertension. COPD. COMPARISON: None. TECHNIQUE: PA and lateral views of the chest were obtained. FINDINGS: The lungs are clear. Heart size is normal and central vasculature is within normal limits. No plueral effusion or pneumothorax seen. No acute bony finding noted. Vascular stent in place, poss ibly related to the left subclavian origin. IMPRESSION: No acute cardiopulmonary process.
[2022-04-28 14:28] LABS: Absolute Lymphocytes (CBC) 1.4 K/uL (0.7-4.9); Hematocrit 46.4 % (39.6-49.0); Lymphocytes % 15.8 % (15.3-44.8); MCV 87.3 fL (80-100); MPV 7.7 fL (7.6-11.3); RBC Red Blood Cell Count 5.31 M/uL (4.33-5.43)
[2022-04-28 14:29] LABS: Anisocytosis 1+; Blood Morphology Comment NOTED (NOT SEEN); Platelet Estimate ADEQ; White Blood Cell Scan OK (OK)
[2022-04-28 14:31] LABS: Protime INR 0.93
[2022-04-28 14:39] LABS: Potassium 4.2 mmol/L (3.5-5.1)
[~2022-05-03 12:30] MED LIST: NA CHLORIDE 0.9% 500 ML ONE
[2022-05-03 13:25] VITALS: TEMP 98
[2022-05-03] MEDS ORDERED: ATROPINE SULF 1 MG/10 ML SYR IV ONE (14:06)
[2022-05-03] MEDS ORDERED: MIDAZOLAM HCL 2 MG/2 ML INJ ONE (14:06)
[2022-05-03] MEDS ORDERED: FENTANYL CITR 100 MCG/2 ML ONE (14:06)
[2022-05-03] MEDS ORDERED: HEPA 1000U/500MLS 2,000 UNIT/1,000 ML BAG IV ONE (14:07)
[2022-05-03] MEDS ORDERED: LIDOCAINE 1% 20 ML MDV ONE (14:07)
--- NOTE | 2022-05-03 15:29 | OP ---
Date of Procedure: 05/03/2022 Surgeon: ALBERT WISDOM Procedure Performed: Bilateral selective carotid angiogram. Indication: Carotid stenosis by Doppler. Access: Right femoral artery 4-[place]ri [place]ankan closed with manual pressure. Complications: None. Bleeding: Less than 10 mL. Description Of Procedure: After risks, benefits, alternatives were explained, patient agreed to the procedure and signed informed consent. Patient was brought into cardiac catheterization laboratory, prepped and draped in the usual sterile fashion and then we accessed right femoral artery using ultra sound guidance, micropuncture and fluoroscopy, placed a 4-[place]ankan Doole sheath and took a 4-[place]ankan 3DRC catheter into the aortic root, engaged the left common carotid and then the right common carotid and took standard views and then removed the catheter and the sheath was removed. Manual pressure w as used for closure with good hemostasis. Findings: 1.The left common carotid has a long segment of 50% stenosis and then it becomes normal. The left i nternal and external carotids were normal. The external carotid is very small. 2.Right common carotid appears to be normal, and the right internal carotid has 50% stenosis. Other than that, no significant disease. Conclusion: [id number] carotid stenosis. Recommendation: Medical management. SR/MODL Voice ID: [id number] Report ID: [id number]
[2022-05-03 16:44] VITALS: O2SAT 93
--- NOTE | 2022-05-03 17:33 | EKG ---
Test Date: 2022-04-28 Test Time: 13:40:16 Multiple Games Dealer: MARYELLEN MEASUREMENT RESULTS: Intervals: Rate: 109 CA: 150 QRSD: 114 QT: 364 QTc: 490 [place]: P: 80 CA: 150 QRS: 112 T: 65 INTERPRETIVE STATEMENTS: Sinus tachycardia Right bundle branch block Left posterior fascicular block Bifascicular block Abnormal ECG No previous ECG available for comparison Electronically Signed On 05-03-22 17:19:58 [employer] CUSTOMER SERVICE AGENT by Ramon Appiah
[2022-05-03 18:11] VITALS: BP 112/68
== END 2022-05-03 18:17 | disposition home or self-care (01) ==
LOC: CCL 12:30
PROVIDERS: ATTEND Internal Medicine
DX: I65.23 Occlusion and stenosis of bilateral carotid arteries (principal); I25.10 Atherosclerotic heart disease of native coronary artery without angina pectoris; I11.0 Hypertensive heart disease with heart failure; I50.9 Heart failure, unspecified; I45.2 Bifascicular block; I73.9 Peripheral vascular disease, unspecified; E78.5 Hyperlipidemia, unspecified; I25.2 Old myocardial infarction; Z87.891 Personal history of nicotine dependence
CPT/HCPCS: 93005; 85025; 80048; 36415; 85610; 85730; 71046; 36222; 76937; C1893; J2001; J2250; J3010; J7040; J1644; J0461

== ENCOUNTER 2024-04-28 11:10 | Emergency (ER) | payer OTHER, BC ==
--- NOTE | 2024-04-28 11:53 | RAD REPORT ---
EXAMINATION: XR RIGHT ELBOW CLINICAL INDICATION: Male, 74 years old. PAIN RIGHT TECHNIQUE: Multiple views of the right elbow were obtained. COMPARISON: No prior exam. FINDINGS: No acute fracture or dislocation seen. Mild degenerative changes. Small olecranon osteophyt e with adjacent soft tissue thickening.
--- NOTE | 2024-04-28 12:14 | RAD REPORT ---
EXAM: CT brain without contrast HISTORY: fall 6 ft from ladder, on plavix COMPARISON: None TECHNIQUE: Multiple contiguous axial images were obtained and a CT of the brain without contrast. Sag ittal and coronal reformats were performed. One or more of the following dose reduction techniques were used: Automated exposure control, adjust ment of the mA and/or kV according to patient size, and/or iterative reconstruction. FINDINGS: No evidence of hydrocephalus, intracranial hemorrhage, or extra-axial fluid collection. Mild brain atrophy with mild periventricular and deep white matter chronic microvascular ischemic ch anges present. No evidence of midline shift or areas of brain edema. The calvarium is intact. The visualized paranasal sinuses and mastoid air cells are essentially clear . IMPRESSION: No evidence of acute intracranial abnormality. EXAM: CT of the cervical spine without contrast HISTORY: Neck pain, injury fall 6 ft from ladder, on plavix TECHNIQUE: Multiple contiguous axial images were obtained in a CT of the cervical spine without contr ast. Sagittal and coronal reformats were performed. FINDINGS: The vertebral bodies demonstrate normal height and alignment. No evidence of acute fracture or subluxation.. There are mild multilevel cervical degenerative changes present. No prevertebral soft tissue swelling is seen. The posterior facets are well aligned. Normal alignment of the skull base with the cervical spine is seen. Upper lung adhikari are emphysematous. IMPRESSION: No evidence of acute osseous abnormality of the cervical spine.
--- NOTE | 2024-04-28 12:16 | RAD REPORT ---
EXAMINATION: CT ABDOMEN AND PELVIS WITHOUT CONTRAST CLINICAL INDICATION: fall from ladder, back pain/sacral pain TECHNIQUE: CT abdomen and pelvis was performed, without IV contrast, as per department protocol. Axia l, sagittal and coronal reconstructions were obtained. One or more of the following dose reduction techniques were used: Automated exposure control, adjustment of the mA and kV according to the patien t size, and iterative reconstruction. Unless otherwise specified, incidental findings do not require dedicated imaging follow-up. COMPARISON: No prior exam. FINDINGS: The lack of intravenous contrast limits the sensitivity of this exam for evaluation of solid visceral organs, vascular structures, and retroperitoneum. LOWER CHEST: The visualized lung bases are clear. LIVER:Normal in size and contour. No focal lesion. Grossly unremarkable gallbladder. SPLEEN: Normal size. No focal lesion. PANCREAS: No mass, ductal dilation, or april-pancreatic fluid. ADRENALS: Normal; no mass. KIDNEYS AND URETERS: Significant right renal atrophy. Left kidney appears unremarkable. No hydronephr osis. URINARY BLADDER: Normal contour. GASTROINTESTINAL TRACT: No evidence of bowel obstruction, significant free fluid, free air or abscess . Mild sigmoid diverticulosis coli without diverticulitis. APPENDIX: Normal appendix. LYMPH NODES: No lymphadenopathy. MUSCULOSKELETAL: Mild multilevel spinal degenerative changes. ADDITIONAL FINDINGS: Right external iliac stent. IMPRESSION: No acute or concerning abnormalities in the abdomen or pelvis, with evaluation limited by lack of IV contrast.
--- NOTE | 2024-04-28 12:43 | EDPHYS ---
Physician Documentation [facility] Name: Thomas Villanueva Age: 74 yrs Sex: Male : 1950 Arrival Date: 04/28/2024 Time: 11:10 Bed 19 Private MD: ED Physician Demetris Carver HPI: 04/28 11:57 This 74 yrs old Male presents to ER via Wheelchair with complaints of Fall Injury - rn work related, Low Back Pain. 11:57 Details of fall: The patient fell from a height, from a ladder, approximately 6 feet. rn Onset: The symptoms/episode began/occurred just prior to arrival. Associated injuries: The patient sustained injury to the low back, Buttocks. Severity of symptoms: At their worst the symptoms were mild, in the emergency department the symptoms are unchanged. The patient has not experienced similar symptoms in the past. Patient reports fell off ladder, approximately 6 feet in height, landed on his buttocks, reports pain to buttocks and lower back. No chest or abdominal pain. No rib pain. No neck pain. Denies hip pain or injury.. Historical: - Allergies: 11:32 No Known Allergies; ss - Immunization history:: Adult Immunizations unknown. - Infectious Disease History:: Denies. - Social history:: Smoking status: unknown. - Family history:: not pertinent. - Hospitalizations: : No recent hospitalization is reported. ROS: 11:57 Constitutional: Negative for fever, chills, and weight loss, Neck: Negative for injury, rn pain, and swelling, Cardiovascular: Negative for chest pain, palpitations, and edema, Respiratory: Negative for shortness of breath, cough, wheezing, and pleuritic chest pain, Abdomen/GI: Negative for abdominal pain, nausea, vomiting, diarrhea, and constipation, Back: Positive for lower back pain MS/Extremity: Negative for injury and deformity, Skin: Negative for injury, rash, and discoloration, Neuro: Negative for headache, weakness, numbness, tingling, and seizure, Exam: 11:57 Constitutional: This is a well developed, well nourished patient who is awake, alert, rn and in no acute distress. Head/Face: Normocephalic, atraumatic. Neck: No midline cervical tenderness Chest/axilla: No rib tenderness or crepitus Cardiovascular: Tachycardic, regular. No pulse deficits. Abdomen/GI: Soft, non-tender Back: No spinal tenderness. Mild right lower april-lumbar tenderness. MS/ Extremity: Pulses equal, no cyanosis. Neurovascular intact. Full, normal range of motion. Equal circumference. Neuro: Awake and alert, GCS 15, oriented to person, place, time, and situation. Cranial nerves II-XII grossly intact. Motor strength 5/5 in all extremities. Sensory grossly intact. Antalgic gait Vital Signs: 11:27 BP 148 / 90; Pulse 116; Resp 17; Temp 97.6(TE); Pulse Ox 94% on R/A; Weight 68.95 kg; ss Height 5 ft. 5 in. ; Pain 5/10; 12:30 BP 132 / 82; Pulse 98; Resp 18; Temp 98.2; Pulse Ox 100% on R/A; kj2 13:06 BP 138 / 84; Pulse 84; Resp 18; Temp 98; Pulse Ox 97% on R/A; kj2 11:27 Body Mass Index 25.29 (68.95 kg, 165.1 cm) ss 11:27 Pain Scale: Adult ss MDM: 11:15 Medical Screening Exam initiated rn 12:41 Differential diagnosis: closed head injury, contusion, fracture. Differential rn diagnosis: sprain, strain. Data reviewed: vital signs, nurses notes. Data reviewed: radiologic studies, CT scan, plain films, and as a result, I will discharge patient. Counseling: I had a detailed discussion with the patient and/or guardian regarding the historical points, exam findings, and any diagnostic results supporting the discharge/admit diagnosis, radiology results, the need for outpatient follow up, to return to the emergency department if symptoms worsen or persist or if there are any questions or concerns that arise at home. Special discussion: I discussed with the patient/guardian in detail that at this point there is no indication for admission to the hospital. It is understood, however, that if the symptoms persist or worsen the patient needs to return immediately for re-evaluation. 04/28 11:23 Order name: CT Head C Spine; Complete Time: 12:17 rn 04/28 11:23 Order name: CT Abd/Pelvis - Without Contrast; Complete Time: 12:17 rn 04/28 11:24 Order name: XRAY Elbow RIGHT 3 view; Complete Time: 12:17 rn Administered Medications: No medications were administered Disposition Summary: 04/28/24 12:42 Discharge Ordered Notes: Location: Home rn Problem: new rn Symptoms: have improved rn Condition: Stable rn Diagnosis - Contusion of lower back and pelvis rn - Contusion of right elbow rn Followup: rn - With: Private Physician - When: As needed - Reason: Recheck today's complaints, Re-evaluation by your physician Discharge Instructions: - Discharge Summary Sheet rn - Contusion rn Forms: - Medication Reconciliation Form rn - Antibiotic external relations director - Prescription Opioid Use rn - Patient Portal Instructions rn - Leadership Thank You Letter rn - Work release form eb Signatures: Dispatcher [employer] EDDemetris Ace MD MD rn Blanchard, Shelby, RN RN Keira Amato RN RN [id number]
--- NOTE | 2024-04-28 12:43 | ER ---
Nurse's Notes [facility] Name: Thomas Villanueva Age: 74 yrs Sex: Male : 1950 Arrival Date: 04/28/2024 Time: 11:10 Bed 19 Private MD: Diagnosis: Contusion of lower back and pelvis;Contusion of right elbow Presentation: 04/28 11:27 Chief complaint: Patient states: back pain and buttock pain after falling 6 ft onto ss buttocks. Coronavirus screen: Client denies travel out of the [place] in the last 14 days. Ebola Screen: Patient denies exposure to infectious person. Patient denies travel to an Ebola-affected area in the 21 days before illness onset. Initial Sepsis Screen: Does the patient meet any 2 criteria? No. Patient's initial sepsis screen is negative. Does the patient have a suspected source of infection? No. Patient's initial sepsis screen is negative. Risk Assessment: Do you want to hurt yourself or someone else? Patient reports no desire to harm self or others. Onset of symptoms was April 28, 2024. 11:27 Method Of Arrival: Wheelchair ss 11:27 Acuity: NGOC 3 ss Historical: - Allergies: 11:32 No Known Allergies; ss - Immunization history:: Adult Immunizations unknown. - Infectious Disease History:: Denies. - Social history:: Smoking status: unknown. - Family history:: not pertinent. - Hospitalizations: : No recent hospitalization is reported. Screenin:37 [facility] [place] ED Fall Risk Assessment (Adult) History of falling in the last 3 months, kc6 including since admission Yes- single mechanical fall (1 pt) Confusion or Disorientation No (0 pts) Intoxicated or Sedated No (0 pts) Impaired Gait No (0 pts) Mobility Assist Device Used No (0 pt) Altered Elimination No (0 pt) Score/Fall Risk Level 0 - 2 = Low Risk Oriented to surroundings, Maintained a safe environment, Educated pt \T\ family on fall prevention, incl call for assistance when getting out of bed. Abuse screen: Denies threats or abuse. Denies injuries from another. Nutritional screening: No deficits noted. Tuberculosis screening: No symptoms or risk factors identified. Assessment: 11:38 General: Appears in no apparent distress. uncomfortable, well groomed, well developed, kc6 Behavior is calm, cooperative, appropriate for age. Pain: Complains of pain in lumbar area, sacrum and buttocks. Neuro: Level of Consciousness is awake, alert, obeys commands, Oriented to person, place, time, situation, Appropriate for age. Cardiovascular: Capillary refill < 3 seconds. Respiratory: Airway is patent Trachea midline Respiratory effort is even, unlabored, Respiratory pattern is regular, symmetrical. GI: No signs and/or symptoms were reported involving the gastrointestinal system. : No signs and/or symptoms were reported regarding the genitourinary system. EENT: No signs and/or symptoms were reported regarding the EENT system. Derm: No signs and/or symptoms reported regarding the dermatologic system. Skin is intact, is healthy with good turgor, Skin is pink, warm \T\ dry. Musculoskeletal: Circulation, motion, and sensation intact. Range of motion: intact in all extremities. 12:10 Reassessment: Patient appears in no apparent distress at this time. Patient and/or kj2 family updated on plan of care and expected duration. Pain level reassessed. Patient is alert, oriented x 3, equal unlabored respirations, skin warm/dry/pink. 13:06 Reassessment: Patient appears in no apparent distress at this time. Patient and/or kj2 family updated on plan of care and expected duration. Pain level reassessed. Patient is alert, oriented x 3, equal unlabored respirations, skin warm/dry/pink. Vital Signs: 11:27 BP 148 / 90; Pulse 116; Resp 17; Temp 97.6(TE); Pulse Ox 94% on R/A; Weight 68.95 kg; ss Height 5 ft. 5 in. ; Pain 5/10; 12:30 BP 132 / 82; Pulse 98; Resp 18; Temp 98.2; Pulse Ox 100% on R/A; kj2 13:06 BP 138 / 84; Pulse 84; Resp 18; Temp 98; Pulse Ox 97% on R/A; kj2 11:27 Body Mass Index 25.29 (68.95 kg, 165.1 cm) ss 11:27 Pain Scale: Adult ss ED Course: 11:14 Patient arrived in ED. ra3 11:14 Demetris Carver MD is Attending Physician. rn 11:32 Triage completed. ss 11:32 Arm band placed on right wrist. ss 11:37 XRAY Elbow RIGHT 3 view In Process Unspecified. EDMS 11:37 Keira Villalta, RN is Primary Nurse. kc6 11:37 Patient has correct armband on for positive identification. Placed in gown. Bed in low kc6 position. Call light in reach. Side rails up X 1. Pulse ox on. NIBP on. Door closed. Noise minimized. Lights dimmed. Pillow given. Verbal reassurance given. Head of bed. 11:38 Patient maintains SpO2 saturation greater than 95% on room air. kc6 12:01 CT Head C Spine In Process Unspecified. EDMS 12:01 CT Abd/Pelvis - Without Contrast In Process Unspecified. EDMS 13:07 Provided Education on: discharge instructions. kj2 13:07 No provider procedures requiring assistance completed. Patient did not have IV access kj2 during this emergency room visit. Administered Medications: No medications were administered Medication: 13:07 VIS not applicable for this client. kj2 Outcome: 12:42 Discharge ordered by . rn 13:07 Discharged to home ambulatory, kj2 13:07 Condition: stable 13:07 Discharge instructions given to patient, Instructed on discharge instructions, follow up and referral plans. Demonstrated understanding of instructions, follow-up care, 13:08 Patient left the ED. kj2 Signatures: Dispatcher [employer] EDMS Demetris Carver MD MD rn Blanchard, Shelby, RN RN ss Keira Villalta, GREG RN kc6 Rafaela العلي ra3 Bhavna Taylor RN RN kj2
[2024-04-28 13:16] VITALS: BP 138/84; TEMP 98; O2SAT 97
== END 2024-04-28 13:08 | disposition home or self-care (01) ==
LOC: ER 11:10
DX: S30.0XXA Contusion of lower back and pelvis, initial encounter (principal); S50.01XA Contusion of right elbow, initial encounter; W11.XXXA Fall on and from ladder, initial encounter; Y99.0 Civilian activity done for income or pay
CPT/HCPCS: 70450; 72125; 74176; 99283